=== PATIENT | female | born 1935 | race Caucasian/White ===

== ENCOUNTER 2017-08-01 08:08 | Inpatient (IN) | payer MEDICARE, OTHER ==
[2017-08-01] VITALS (20 sets, daily range): BP systolic 122–164; BP diastolic 48–97
[~2017-08-01] VITALS: Ht 160 cm; Wt 60.3 kg
[2017-08-01] MEDS ORDERED: ASPIRIN 325 MG TABLET PO ONE (08:15)
[2017-08-01] MEDS ORDERED: ASPIRIN 81 MG TAB.CHEW PO ONE (08:30)
[2017-08-01] MEDS ORDERED: AMLO10TA2 PO (08:31)
[2017-08-01] MEDS ORDERED: FENO145T20 PO (08:31)
[2017-08-01] MEDS ORDERED: POTA-10 PO (08:31)
[2017-08-01] MEDS ORDERED: ATOR40TA PO (08:31)
[2017-08-01] MEDS ORDERED: EZET10TA13 PO (08:31)
[2017-08-01] MEDS ORDERED: LOSA1TAB39 PO (08:31)
[2017-08-01] MEDS ORDERED: ASPI81TA31 PO (08:31)
--- NOTE | 2017-08-01 08:31 | NUR ---
BIPAP initiated by resp therapist, pt is tolerating the BIPAP well at this time.
[2017-08-01] MEDS ORDERED: ASPIRIN 325 MG TABLET ONE (08:36)
[2017-08-01] MEDS ORDERED: ASPIRIN 81 MG TAB.CHEW ONE (08:37)
[2017-08-01 08:52] LABS: BASOPHILS # (AUTO) 0.1 K/uL (0.0-8.0); BASOPHILS % (AUTO) 0.4 % (0.0-2.0); EOSINOPHILS # (AUTO) 0.1 K/uL (0.0-0.7); EOSINOPHILS % (AUTO) 0.7 % (0.0-7.0); HEMATOCRIT 34.3 % (31.2-41.9); HEMOGLOBIN 10.9 g/dL (10.9-14.3); LYMPHOCYTES # (AUTO) 1.6 K/uL (20.0-40.0); LYMPHOCYTES % (AUTO) 12.7 % (20.5-51.5); MEAN CORPUSCULAR HEMOGLOBIN 29.6 uug (24.7-32.8); MEAN CORPUSCULAR HGB CONC 32 g/dL (32.3-35.6); MONOCYTES # (AUTO) 0.4 K/uL (2.0-10.0); MONOCYTES % (AUTO) 3.4 % (0.0-11.0); NEUTROPHILS # (AUTO) 10.4 K/uL (1.8-8.9); NEUTROPHILS % (AUTO) 82.8 % (38.5-71.5); PLATELET COUNT (AUTO) 215 K/uL (179-408); RED BLOOD CELL COUNT(AUTO) 3.69 MIL/uL (3.63-4.92); WHITE BLOOD COUNT (AUTO) 12.6 K/uL (3.8-11.8)
[2017-08-01] MEDS ORDERED: FUROSEMIDE 20 MG/2 ML VIAL IV ONE ×2 (09:00→09:15)
[2017-08-01] MEDS ORDERED: LEVOFLOXACIN 750 MG/D5W 150 ML PIGGYBACK IV ONE (09:00)
--- NOTE | 2017-08-01 09:00 | NUR ---
CCU bed 5 will be available in approx 1100 per nursing supervisor [employer].
[2017-08-01 09:09] LABS: ALANINE AMINOTRANSFERASE 24 U/L (14-59); ALKALINE PHOSPHATASE 56 U/L (50-136); ASPARTATE AMINOTRANSFERASE 48 U/L (15-37); BILIRUBIN,DIRECT 0.3 mg/dL (0.0-0.2); BILIRUBIN,TOTAL 0.7 mg/dL (0.2-1.0); CARBON DIOXIDE 21 mmol/L (21-32); CHLORIDE 102 mmol/L (98-107); CREATININE 2.2 mg/dL (0.6-1.3); GLUCOSE 175 mg/dL (74-106); POTASSIUM 2.9 mmol/L (3.5-5.1); TOTAL PROTEIN, SERUM 7.6 g/dL (6.4-8.2); UREA NITROGEN, BLOOD 30 mg/dL (7-18)
[2017-08-01 09:12] LABS: ABG BASE EXCESS -6.7 mmol/L; ABG HCO3 18.5 mmol/L; ABG PCO2 35.4 mmHg (35.0-45.0); ABG PH 7.335 (7.350-7.450); ABG PO2 330.9 mmHg (75.0-100.0); ABG SITE LEFT RADIAL; COHb 1.2 % (0.5-1.5); MetHb 0.4 % (0.0-1.5); O2Hb 98.3 % (94.0-97.0); VENT MODE BIPAP- 14/5
[2017-08-01] MEDS ORDERED: ENOXAPARIN SODIUM 60 MG/0.6 ML DISP.SYRIN SQ ONE ×2 (09:15→09:37)
[2017-08-01] MEDS ORDERED: FUROSEMIDE 20 MG/2 ML VIAL ONE (09:19)
[2017-08-01] MEDS ORDERED: LEVOFLOXACIN 750MG/D5W 150 ML IV ONE (09:20)
--- NOTE | 2017-08-01 09:22 | NUR ---
Patient is resting comfortably on gurney with eyes closed, tolerating the BIPAP well. Spouse is at bedside. CCU bed and nurse will be available at around 1100am per nursing transmission maintenance supervisor.
--- NOTE | 2017-08-01 09:26 | NUR ---
Er doctor is aware of all lab tests results, no new orders given at this time
--- NOTE | 2017-08-01 09:53 | NUR ---
pt was given breathing tx in the field for SOB and SpO2 84% was on standby. pt received in the ER with NRB 100% O2. BiPAP 14/5, rate of 16, FiO2 100% per MD. alarms are on and audible. vent is plugged into red outlet. ambu bag at bedside. ABG done after 30min of being on BiPAP. lowered FiO2 per ABG results. will continue to monitor.
--- NOTE | 2017-08-01 10:47 | NUR ---
Oral care provided, still for CCU transfer as soon as the CCU nurse is ready
--- NOTE | 2017-08-01 11:30 | NUR ---
Admit pt.to CCU#5,Pt.A/A/O, on BIPAP denies any CP @ time,family members at bedside.
--- NOTE | 2017-08-01 11:35 | NUR ---
Pt.was seen by .
--- NOTE | 2017-08-01 12:15 | NUR ---
Pt.was seen by PARTS CLEANER:Adelaida Hill,was notified about pt.condition.
[2017-08-01] MEDS ORDERED: ONDANSETRON 4 MG/2 ML VIAL IV PRN (13:15)
[2017-08-01] MEDS ORDERED: POTASSIUM CHLORIDE 20 MEQ TAB.PRT.SR PO ONE (13:15)
[2017-08-01] MEDS ORDERED: Z GUARD REMEDY PASTE 57 GM TUBE TOP PRN (13:15)
[2017-08-01] MEDS ORDERED: ZOLPIDEM 5 MG TABLET PO PRN (13:15)
[2017-08-01] MEDS ORDERED: MAGNESIUM HYDROXIDE 30 ML LIQUID UDC PO PRN (13:15)
[2017-08-01] MEDS ORDERED: INSULIN REGULAR, HUMAN 300 UNIT/3 ML VIAL SQ PRN (13:15)
[2017-08-01] MEDS ORDERED: DEXTROSE 50% 50 ML DISP.SYRIN IV PRN (13:15)
[2017-08-01] MEDS ORDERED: ACETAMINOPHEN 325 MG TABLET PO PRN (13:15)
[2017-08-01] MEDS ORDERED: HYDROCODONE/APAP 5-325MG TABLET PO PRN (13:15)
[2017-08-01] MEDS ORDERED: HEPARIN SODIUM,PORCINE 5,000 UNITS/ML VIAL SQ SCH (13:15)
[2017-08-01] MEDS: POTASSIUM CHLORIDE 10 MEQ CAPSULE.SA PO SCH ×2 (13:46→16:43)
[2017-08-01 15:01] LABS: ABG BASE EXCESS -2.4 mmol/L; ABG PCO2 30.9 mmHg (35.0-45.0); ABG PO2 133.7 mmHg (75.0-100.0); ABG SITE LEFT BRACHIAL; ABG TOTAL HEMOGLOBIN 9.7 G/dL (12.0-16.0); COHb 0.6 % (0.5-1.5); MetHb 0.5 % (0.0-1.5); O2Hb 97.8 % (94.0-97.0); VENT MODE BIPAP
--- NOTE | 2017-08-01 15:11 | NUR ---
ABG DONE. RESULTS NON CRITICAL. BIPAP REMOVED AND PLACED ON 3LPM NC TO GIVE PATIENT A BREAK. PT STATES HER BREATHING IS FINE OFF OF BIPAP. PT SHOWS NO SIGNS OF SOB OR ANY RESPIRATORY DISTRESS.
--- NOTE | 2017-08-01 15:36 | NUR ---
EKG done,reported to AGRIBUSINESS PROFESSOR:Bipin
[2017-08-01] MEDS: HEPARIN/D5W DRIP 500 ML IV PRN (16:26)
--- NOTE | 2017-08-01 16:36 | NUR ---
Family members at bedside,updated with pt. plan of care and condition.
[2017-08-01] MEDS: BLOOD SUGAR DIAGNOSTIC 1 EACH STRIP VI SCH ×2 (16:42→21:17)
[2017-08-01] MEDS ORDERED: HEPARIN SODIUM,PORCINE 5,000 UNITS/ML VIAL IV PRN (16:45)
[2017-08-01] MEDS ORDERED: ATORVASTATIN 40 MG TABLET PO SCH (18:00)
--- NOTE | 2017-08-01 18:15 | NUR ---
Pt.eating dinner,poor appetite, watching TV denies any pain,no SOB noted.
--- NOTE | 2017-08-01 19:30 | NUR ---
Report received. Patient awake, alert but mildly restless, rubbing legs together but denies pain. "I can't stay still." patient states. Complaining about the Chaparro catheter and asking if it can be taken out. Advised appropriately. Denies SOB or chest pain. On O2 @ 3L NC; sat above 93%. Assessment completed. Tylenol given for generalized discomfort. On continuous Heparin drip per protocol. Addendum: 08/01/17 at 2341 by SILVIO CHRISTIANSON RN Amended: Links added.
--- NOTE | 2017-08-01 20:20 | NUR ---
Daughter visited; updated of patient's condition. Patient still restless. Spoke to Nisha Son NP. Order received. Addendum: 08/01/17 at 2345 by SILVIO CHRISTIANSON RN Amended: Links added.
[2017-08-01] MEDS ORDERED: LORAZEPAM 2 MG/1 ML VIAL IV ONE (20:30)
[2017-08-01] MEDS ORDERED: TEMAZEPAM 7.5 MG CAPSULE PO PRN (20:30)
--- NOTE | 2017-08-01 20:45 | NUR ---
PM care rendered. Patient made comfortable. Medicated with Ativan IV. Addendum: 08/01/17 at 2347 by SILVIO CHRISTIANSON RN Amended: Links added.
[2017-08-01] MEDS: FUROSEMIDE 40 MG/4 ML VIAL IV SCH (20:54)
[2017-08-01] MEDS ORDERED: METOPROLOL TARTRATE 50 MG TABLET PO SCH (21:00)
--- NOTE | 2017-08-01 21:13 | NUR ---
Troponin level called to Dr. Martin; order received to repeat Troponin level with am labs.
--- NOTE | 2017-08-01 21:45 | NUR ---
Remains restless,fidgety but continues to deny chest pain and SOB. Still can't get comfortable even after Ativan and PM care. No EKG changes. Spoke to Dr. Martin again. Orders received. Addendum: 08/01/17 at 2358 by SILVIO CHRISTIANSON RN Amended: Links added.
[2017-08-01] MEDS: NITROGLYCERIN IV 250 ML IV PRN (22:00)
--- NOTE | 2017-08-01 22:00 | NUR ---
Nitroglycerine drip started at 5 mcg/min. 2nd IV access inserted to RW area. Addendum: 08/02/17 at 0001 by SILVIO CHRISTIANSON RN Amended: Links added.
[2017-08-01] MEDS: MORPHINE SULFATE 2 MG/1 ML DISP.SYRIN IV PRN (22:04)
--- NOTE | 2017-08-01 22:30 | NUR ---
Morphine effective. Monitor: sinus arrhythmia to sinus bradycardia rate 50's. BPs monitored closely.
--- NOTE | 2017-08-01 23:25 | NUR ---
PTT dulxvlw=146.4 sec. Heparin drip off x 60 min and will resume at 775 units/H as per protocol.
[2017-08-02] VITALS (88 sets, daily range): BP systolic 107–189; BP diastolic 43–100
--- NOTE | 2017-08-02 | NUR ---
Sleeping. Sat above 94%.
--- NOTE | 2017-08-02 00:30 | NUR ---
Heparin drip resumed at 775 units/H as per protocol.
--- NOTE | 2017-08-02 02:30 | NUR ---
Patient awake, moving R leg actively where BPs are monitored. SBPs 170's. Nitroglycerine drip titrated. Both arms with multiple bruises. Addendum: 08/02/17 at 0527 by SILVIO CHRISTIANSON RN Amended: Links added.
[2017-08-02] MEDS: MORPHINE SULFATE 2 MG/1 ML DISP.SYRIN IV PRN (03:07)
--- NOTE | 2017-08-02 03:07 | NUR ---
Patient remains awake, with facial grimacing although still denying chest pain and discomfort. Medicated with Morphine IV.
[2017-08-02 05:31] LABS: CARBON DIOXIDE 21 mmol/L (21-32); CHLORIDE 108 mmol/L (98-107); CHOLESTEROL 107 mg/dL (<200); CREATININE 2.7 mg/dL (0.6-1.3); GLUCOSE 106 mg/dL (74-106); HDL CHOLESTEROL 68 mg/dL (40-60); MAGNESIUM 2.2 mg/dL (1.8-2.4); PHOSPHOROUS 4.7 mg/dL (2.5-4.9); POTASSIUM 4.3 mmol/L (3.5-5.1); TRIGLYCERIDES 44 MG/DL (30-150); UREA NITROGEN, BLOOD 38 mg/dL (7-18)
[2017-08-02 05:37] LABS: BASOPHILS % (AUTO) 0.3 % (0.0-2.0); EOSINOPHILS # (AUTO) 0.1 K/uL (0.0-0.7); EOSINOPHILS % (AUTO) 1.2 % (0.0-7.0); HEMATOCRIT 26.5 % (31.2-41.9); HEMOGLOBIN 8.7 g/dL (10.9-14.3); LYMPHOCYTES # (AUTO) 0.9 K/uL (20.0-40.0); LYMPHOCYTES % (AUTO) 16.5 % (20.5-51.5); MEAN CORPUSCULAR HEMOGLOBIN 30.1 uug (24.7-32.8); MEAN CORPUSCULAR HGB CONC 33 g/dL (32.3-35.6); MEAN CORPUSCULAR VOLUME 91.6 fL (75.5-95.3); MONOCYTES # (AUTO) 0.3 K/uL (2.0-10.0); MONOCYTES % (AUTO) 5.3 % (0.0-11.0); NEUTROPHILS # (AUTO) 4.2 K/uL (1.8-8.9); NEUTROPHILS % (AUTO) 76.7 % (38.5-71.5); PLATELET COUNT (AUTO) 147 K/uL (179-408); RED BLOOD CELL COUNT(AUTO) 2.89 MIL/uL (3.63-4.92); WHITE BLOOD COUNT (AUTO) 5.4 K/uL (3.8-11.8)
--- NOTE | 2017-08-02 06:03 | NUR ---
PTT=98.6 sec. On Heparin protocol. Patient continues to sleep but easily arouses to name.
--- NOTE | 2017-08-02 07:00 | NUR ---
Heparin drip resumed at 575 units/H. Nitroglycerine drip at 40 mcg/min. Remains in SA and Sinus bradycardia rate in the 40's. Report given to Marilin MEDRANO.
--- NOTE | 2017-08-02 07:30 | NUR ---
RECIEVED PT LYING IN BED, VERY SOUND ASLEEP BUT EASILY AROUSABLE. APPEARS VERY TIRED. NO C/O CHEST PAINS. HR- SB IN THE LOW 50'S. ON HEPARIN DRIP AT 575UNITS/HR=11.5ML/HR VIA RT WRIST. NITROGLYCERIN DRIP AT 40MCG/MIN RUNNING AT 12ML/HR. O2 ON 3LNC, O2SAT OF 92-95%. LUNGS ARE CLEAR AND DIMINISHED AT THE BASES. AFEBRILE.
[2017-08-02] MEDS: BLOOD SUGAR DIAGNOSTIC 1 EACH STRIP VI SCH ×4 (07:32→21:08)
[2017-08-02] MEDS: FUROSEMIDE 40 MG/4 ML VIAL IV SCH ×2 (08:55→21:09)
[2017-08-02] MEDS: AMLODIPINE 10 MG TABLET PO SCH (08:56)
[2017-08-02] MEDS ORDERED: EZETIMIBE 10 MG TABLET PO SCH (09:00)
[2017-08-02] MEDS ORDERED: LEVOFLOXACIN 750MG/D5W 750 MG in PREMIXED 1 EACH IV SCH (09:00)
[2017-08-02] MEDS ORDERED: ASPIRIN 81 MG TAB.CHEW PO SCH ×2 (09:00)
[2017-08-02] MEDS ORDERED: FENOFIBRATE NANOCRYSTALLIZED 145 MG TABLET PO SCH (09:00)
[2017-08-02 09:11] LABS: ABG BASE EXCESS -1.9 mmol/L; ABG HCO3 22.2 mmol/L; ABG PCO2 34.8 mmHg (35.0-45.0); ABG PH 7.422 (7.350-7.450); ABG PO2 74.1 mmHg (75.0-100.0); ABG SITE RIGHT RADIAL; ABG TOTAL HEMOGLOBIN 9.4 G/dL (12.0-16.0); COHb 1.1 % (0.5-1.5); MetHb 0.3 % (0.0-1.5); O2Hb 93.7 % (94.0-97.0); VENT MODE Nasal Cannula
--- NOTE | 2017-08-02 09:15 | NUR ---
PT REFUSED TO EAT AND C/O BEING NAUSEATED. MEDICATED WITH ZOFRAN 4MG SLOW IVP ORDERED. AND PT ABLE TO SLEEP.
--- NOTE | 2017-08-02 10:18 | NUR ---
SEEN AND EXAMINED BY DR MCKINNON WITH NEW ORDER. DISCUSSED ABOUT PT CONDITION WITH THE REGARDING POSSIBLE HEART CATH AND TRANSFERRING TO ANOTHER ACUTE HOSPITAL.
--- NOTE | 2017-08-02 11:30 | NUR ---
SEEN AND EXAMINED BY DR TEJADA WITH NEW ORDER. APPLICATION ENGINEER IS WORKING ON POSSIBLE TRANSFER TO [facility]. FAMILY IS AMENABLE.
[2017-08-02] MEDS ORDERED: MORPHINE SULFATE 4 MG/1 ML DISP.SYRIN IV PRN (12:15)
--- NOTE | 2017-08-02 12:39 | NUR ---
SEEN AND EXAMINED BY NANCY RODGERS WITH NEW ORDER. FAMILY AT THE BEDSIDE AND VERY PLEASANT.
[2017-08-02] MEDS: ATORVASTATIN 40 MG TABLET PO SCH (17:43)
--- NOTE | 2017-08-02 19:00 | NUR ---
Held dose of hydralazine due 1744. Will give on next dose at 2200
[2017-08-02] MEDS: hydrALAZINE HCL 25 MG TABLET PO SCH ×2 (19:30→21:11)
--- NOTE | 2017-08-02 19:30 | NUR ---
Patient is resting in bed. A/O x 4 with no complains of discomfort or pain. Nitro drip and Heparin drip running as ordered via peripheral IV. See eMAR. Sinus bradycardia on monitor with HR in 50s. BP WNL. Nasal cannula 4L O2. Chaparro intact, patent. SBAR report received from Tona Chacon RN. Will continue plan of care.
--- NOTE | 2017-08-02 20:42 | NUR ---
Call from [facility] transfer [facility] regarding transfer. No bed available at this time. Face sheet faxed,
[2017-08-02] MEDS ORDERED: METOPROLOL TARTRATE 50 MG TABLET PO SCH (21:00)
[2017-08-02] MEDS: METOPROLOL TARTRATE 25 MG TABLET PO SCH (21:00)
--- NOTE | 2017-08-02 22:01 | NUR ---
Held Metoprolol 2100 for bradycardia
[2017-08-03] VITALS (62 sets, daily range): BP systolic 113–160; BP diastolic 42–99
[2017-08-03] MEDS: NITROGLYCERIN IV 250 ML IV PRN (01:33)
[2017-08-03 05:16] LABS: BASOPHILS % (AUTO) 0.4 % (0.0-2.0); EOSINOPHILS # (AUTO) 0.2 K/uL (0.0-0.7); EOSINOPHILS % (AUTO) 3.1 % (0.0-7.0); HEMATOCRIT 26.9 % (31.2-41.9); HEMOGLOBIN 8.9 g/dL (10.9-14.3); LYMPHOCYTES # (AUTO) 0.8 K/uL (20.0-40.0); LYMPHOCYTES % (AUTO) 15.7 % (20.5-51.5); MEAN CORPUSCULAR HEMOGLOBIN 30.3 uug (24.7-32.8); MEAN CORPUSCULAR HGB CONC 33 g/dL (32.3-35.6); MEAN CORPUSCULAR VOLUME 92.1 fL (75.5-95.3); MONOCYTES # (AUTO) 0.3 K/uL (2.0-10.0); MONOCYTES % (AUTO) 6.2 % (0.0-11.0); NEUTROPHILS # (AUTO) 3.7 K/uL (1.8-8.9); NEUTROPHILS % (AUTO) 74.6 % (38.5-71.5); PLATELET COUNT (AUTO) 153 K/uL (179-408); RED BLOOD CELL COUNT(AUTO) 2.92 MIL/uL (3.63-4.92)
[2017-08-03 05:40] LABS: CARBON DIOXIDE 23 mmol/L (21-32); CHLORIDE 106 mmol/L (98-107); CREATININE 3.1 mg/dL (0.6-1.3); FERRITIN 155 ng/mL (8-252); GLUCOSE 93 mg/dL (74-106); PHOSPHOROUS 4.8 mg/dL (2.5-4.9); POTASSIUM 3.5 mmol/L (3.5-5.1); UREA NITROGEN, BLOOD 44 mg/dL (7-18)
[2017-08-03 05:49] LABS: IRON, SERUM 22 ug/dL (50-175)
[2017-08-03] MEDS: hydrALAZINE HCL 25 MG TABLET PO SCH ×3 (06:01→22:31)
[2017-08-03] MEDS: HEPARIN/D5W DRIP 500 ML IV PRN (06:13)
[2017-08-03] MEDS: BLOOD SUGAR DIAGNOSTIC 1 EACH STRIP VI SCH ×4 (06:31→21:21)
--- NOTE | 2017-08-03 07:30 | NUR ---
RECIEVED PT VERY SOUND ASLEEP. HOB 30DEGREES UP. AROUSABLE TO CALL. COLOR IS SLIGHTLY PALE. DENIES MUNOZ OR DIZZINESS. HR-SB IN THE LOW 50'S WITH OCCASSIONAL PAC'S. NO C/O CP. HEPARIN DRIP IN PROGRESS AT 675UNITS/HR. SITE IS GOOD... NITROGLYCERINE DRIP INFUSING AT 12 MCG/MIN FOR BP CONTROL. SBP RUNNING BETWEEN 125 TO 160. NO C/O HEADACHES.
[2017-08-03] MEDS: ASPIRIN 81 MG TAB.CHEW PO SCH (08:34)
[2017-08-03] MEDS: AMLODIPINE 10 MG TABLET PO SCH (08:34)
[2017-08-03] MEDS: FUROSEMIDE 40 MG/4 ML VIAL IV SCH (08:35)
[2017-08-03] MEDS: LEVOFLOXACIN 500 MG/D5W 500 MG in PREMIXED 1 EACH IV SCH (08:48)
[2017-08-03] MEDS ORDERED: LEVOFLOXACIN 500 MG/D5W 0 ML ONE (08:49)
[2017-08-03] MEDS: METOPROLOL TARTRATE 25 MG TABLET PO SCH ×2 (08:49→21:18)
--- NOTE | 2017-08-03 09:00 | NUR ---
SEEN AND EVALUATED BY PT. ABLE TO DANGLE IN BED WITHOUT ANY PROBLEM.
--- NOTE | 2017-08-03 09:30 | NUR ---
PT ATE GOOD FOR BREAKFAST.
--- NOTE | 2017-08-03 11:30 | NUR ---
SEEN AND EXAMINED BY DR TEJADA WITH NEW ORDER
--- NOTE | 2017-08-03 12:00 | NUR ---
SEEN AND EXAMINED BY DR CURTIS AND SPOKE WITH PT AND FAMILY AT THE BEDSIDE.
--- NOTE | 2017-08-03 13:00 | NUR ---
PTT-34.6. HEPARIN 3,600UNITS BOLUS GIVEN PER PROTOCOL AND INCREASE THE RATE BY 200, RUNNING AT 875 UNITS/HR. NEXT PTT WILL BE AT 1900.
--- NOTE | 2017-08-03 15:30 | NUR ---
SEEN AND EXAMINED BY DR PRATIBHA HOOD NEW ORDERS. HEPAARIN DRIP AND NITROGLYCERINE DRIP ARE DISCONTINUED ORDERED. PT ALSO GOT DOWN GRADED TO TELEMETRY.
[2017-08-03] MEDS: ATORVASTATIN 40 MG TABLET PO SCH (18:32)
--- NOTE | 2017-08-03 19:00 | NUR ---
PT TRANSFERRED TO TELEMETRY UNIT RM 211 VIA BED. CONDITION IS STABLE.
--- NOTE | 2017-08-03 19:30 | NUR ---
PT IN ROOM ALERT AWAKE IN NO ACUTE DISTRESS. SINUS RHYTHM NOTED WITH 78 BPM. ABLE TO FOLLOW SIMPLE COMMANDS WITHOUT DIFFICULTY. NO ACTIVE BLEEDING AT THIS TIME BUT BRUISES TO BILATERAL UPPER EXTREMITIES STILL PRESENT. 02 SAT NOTED 96% VIA OXYGEN 3L/MIN. REMINDED PT TO ASK FOR ASSISTANCE IF NEEDED. CALL LIGHT PLACED WITHIN REACH. DENIES ANY PAIN, HEADACHES, OR SOB AT THIS TIME. CONTINUE TO MONITOR.
--- NOTE | 2017-08-03 20:00 | NUR ---
PT REFUSES TO WEAR SCDS AT THIS TIME.
[2017-08-04] VITALS: BP 140/50
[2017-08-04 04:36] VITALS: BP 149/45
--- NOTE | 2017-08-04 06:00 | NUR ---
PT IN ROOM ALERT AWAKE IN NO ACUTE DISTRESS OVERNIGHT. ABLE TO SLEEP WITHOUT DIFFICULTY SINCE RECIEVING RESTORIL REQUESTED. SINUS RYTHYM NOTED ON TRANSCRIBING MACHINE MECHANIC. NO S/S OF RESP DISTRESS. DENIES ANY HEADACHES, SOB, OR PAIN AT THIS TIME. NO S/S OF HYPER/HYPOGLYCEMIA. CONTINUE TO MONITOR. PT ENCOURAGED DEEP BREATHING EXERCISES AND REPOSITIONED. BP MEDICATION ROUTINELY GIVEN.
[2017-08-04 06:37] LABS: BASOPHILS % (AUTO) 0.4 % (0.0-2.0); EOSINOPHILS % (AUTO) 0.6 % (0.0-7.0); HEMATOCRIT 27.1 % (31.2-41.9); HEMOGLOBIN 9.1 g/dL (10.9-14.3); LYMPHOCYTES # (AUTO) 0.8 K/uL (20.0-40.0); LYMPHOCYTES % (AUTO) 16.1 % (20.5-51.5); MEAN CORPUSCULAR HEMOGLOBIN 30.3 uug (24.7-32.8); MEAN CORPUSCULAR HGB CONC 34 g/dL (32.3-35.6); MEAN CORPUSCULAR VOLUME 90.4 fL (75.5-95.3); MONOCYTES # (AUTO) 0.4 K/uL (2.0-10.0); MONOCYTES % (AUTO) 8.7 % (0.0-11.0); NEUTROPHILS # (AUTO) 3.6 K/uL (1.8-8.9); NEUTROPHILS % (AUTO) 74.2 % (38.5-71.5); PLATELET COUNT (AUTO) 162 K/uL (179-408); WHITE BLOOD COUNT (AUTO) 4.9 K/uL (3.8-11.8)
[2017-08-04 06:44] LABS: CARBON DIOXIDE 22 mmol/L (21-32); CHLORIDE 104 mmol/L (98-107); CREATININE 3.1 mg/dL (0.6-1.3); GLUCOSE 88 mg/dL (74-106); POTASSIUM 3.2 mmol/L (3.5-5.1); UREA NITROGEN, BLOOD 44 mg/dL (7-18)
[2017-08-04] MEDS: hydrALAZINE HCL 25 MG TABLET PO SCH ×3 (06:54→22:58)
[2017-08-04] MEDS: BLOOD SUGAR DIAGNOSTIC 1 EACH STRIP VI SCH ×4 (06:56→20:43)
--- NOTE | 2017-08-04 07:40 | NUR ---
Patient is resting in bed. A/O x 4 with no complains of discomfort or pain Sinus on monitor with HR in 67. BP WNL. Nasal cannula 3L O2. Chaparro intact, patent. . Will continue plan of care.
[2017-08-04] MEDS: ASPIRIN 81 MG TAB.CHEW PO SCH (08:16)
[2017-08-04] MEDS: AMLODIPINE 10 MG TABLET PO SCH (08:16)
[2017-08-04] MEDS: METOPROLOL TARTRATE 25 MG TABLET PO SCH ×2 (08:16→20:25)
[2017-08-04] MEDS: CLOPIDOGREL 75 MG TABLET PO SCH (09:48)
[2017-08-04] MEDS ORDERED: POTASSIUM CHLORIDE 20 MEQ POWDER PACKET PO ONE (11:30)
[2017-08-04 11:36] VITALS: BP 116/43
--- NOTE | 2017-08-04 12:00 | NUR ---
d/c folly catheter per md orders.
[2017-08-04 15:54] VITALS: BP 130/46
[2017-08-04] MEDS: ATORVASTATIN 40 MG TABLET PO SCH (18:11)
--- NOTE | 2017-08-04 19:20 | NUR ---
PT IN ROOM ALERT AWAKE IN NO RESP DISTRESS. ABLE TO FOLLOW SIMPLE COMMANDS WITHOUT DIFFICULTY. REMINDED PT TO USE OXYGEN N/C AND TO REQUEST FOR ASSISTANCE WHEN NEEDED. IV SITE IN TACT AND DENIES ANY PAIN OR ABDOMINAL DISCOMFORT. CONTINUE TO MONITOR. PT MADE AWARE OF PLAN FOR TRANSFER TOMORROW AM FOR STRESS TEST. VERBALIZED UNDERSTANDING. CALL LIGHT PLACED WITHIN REACH.
[2017-08-04 20:09] VITALS: BP 140/53
[2017-08-05 00:12] VITALS: BP 141/52
--- NOTE | 2017-08-05 01:00 | NUR ---
PT IN ROOM ASLEEP IN NO ACUTE DISTRESS. SINUS RHYTHM NOTED WITH 57 BPM. MAINTAINING NPO AT THIS TIME. CONTINUE TO MONITOR.
[2017-08-05 04:00] VITALS: BP 151/43
--- NOTE | 2017-08-05 05:00 | NUR ---
PT IN ROOM ALERT AWAKE IN NO ACUTE DISTRESS. DENIES ANY PAIN OR DISCOMFORT AT THIS TIME. SINUS RHYTHM NOTED. MAINTAINING NPO STATUS AND AWARE OF UPCOMING TRANSFER TO [place] FOR PROCEDURE. NO NEW ORDERS AT THIS TIME. CONTINUE TO MONITOR. PT REMINDED TO USE CALL LIGHT FOR ASSISTANCE WHEN NEEDED. REMINDED PT TO WEAR N/C AT ALL TIMES. VERBALIZED UNDERSTANDING.
[2017-08-05] MEDS: hydrALAZINE HCL 25 MG TABLET PO SCH ×4 (05:57→21:10)
[2017-08-05 06:25] LABS: BASOPHILS % (AUTO) 0.4 % (0.0-2.0); EOSINOPHILS # (AUTO) 0.1 K/uL (0.0-0.7); EOSINOPHILS % (AUTO) 1.7 % (0.0-7.0); HEMATOCRIT 29.4 % (31.2-41.9); HEMOGLOBIN 9.8 g/dL (10.9-14.3); LYMPHOCYTES # (AUTO) 0.7 K/uL (20.0-40.0); LYMPHOCYTES % (AUTO) 11.6 % (20.5-51.5); MEAN CORPUSCULAR HEMOGLOBIN 30.2 uug (24.7-32.8); MEAN CORPUSCULAR HGB CONC 33 g/dL (32.3-35.6); MEAN CORPUSCULAR VOLUME 90.8 fL (75.5-95.3); MONOCYTES # (AUTO) 0.4 K/uL (2.0-10.0); MONOCYTES % (AUTO) 7.9 % (0.0-11.0); NEUTROPHILS # (AUTO) 4.5 K/uL (1.8-8.9); NEUTROPHILS % (AUTO) 78.4 % (38.5-71.5); PLATELET COUNT (AUTO) 189 K/uL (179-408); RED BLOOD CELL COUNT(AUTO) 3.23 MIL/uL (3.63-4.92); WHITE BLOOD COUNT (AUTO) 5.7 K/uL (3.8-11.8)
[2017-08-05] MEDS: BLOOD SUGAR DIAGNOSTIC 1 EACH STRIP VI SCH ×4 (06:32→21:15)
[2017-08-05 06:39] LABS: ALANINE AMINOTRANSFERASE 26 U/L (14-59); ALKALINE PHOSPHATASE 42 U/L (50-136); ASPARTATE AMINOTRANSFERASE 48 U/L (15-37); BILIRUBIN,TOTAL 0.7 mg/dL (0.2-1.0); CARBON DIOXIDE 22 mmol/L (21-32); CHLORIDE 104 mmol/L (98-107); CREATININE 2.9 mg/dL (0.6-1.3); GLUCOSE 113 mg/dL (74-106); MAGNESIUM 2.1 mg/dL (1.8-2.4); PHOSPHOROUS 3.8 mg/dL (2.5-4.9); POTASSIUM 3.7 mmol/L (3.5-5.1); TOTAL PROTEIN, SERUM 6.9 g/dL (6.4-8.2); UREA NITROGEN, BLOOD 44 mg/dL (7-18)
[2017-08-05] MEDS: AMLODIPINE 10 MG TABLET PO SCH (08:15)
[2017-08-05] MEDS: METOPROLOL TARTRATE 25 MG TABLET PO SCH ×2 (08:16→21:09)
[2017-08-05] MEDS: ASPIRIN 81 MG TAB.CHEW PO SCH (08:17)
[2017-08-05] MEDS: CLOPIDOGREL 75 MG TABLET PO SCH (08:17)
[2017-08-05] MEDS: LEVOFLOXACIN 500 MG/D5W 500 MG in PREMIXED 1 EACH IV SCH (08:19)
[2017-08-05] MEDS ORDERED: REGADENOSON 0.4 MG/5 ML PREFILLED SYR IV ONE (09:00)
--- NOTE | 2017-08-05 10:30 | NUR ---
pt went to [facility] for stress test via ambulances in stable condition.
[2017-08-05 11:07] VITALS: BP 133/49
[2017-08-05 15:36] VITALS: BP 150/54
--- NOTE | 2017-08-05 15:40 | NUR ---
pt received back from [facility] via ambulances in stable condition.
[2017-08-05] MEDS: ATORVASTATIN 40 MG TABLET PO SCH (17:41)
--- NOTE | 2017-08-05 19:30 | NUR ---
RECEIVED PT AWAKE, ALERT AND ORIENTED X4. FAMILY AT BEDSIDE. PT SHOWS NO SIGNS OF DISTRESS. PT IV INTACT AND ON HEPLOCK. CALL LIGHT WITHIN REACH. SAFETY AND COMFORT PROVIDED . WILL CONTINUE TO MONITOR.
[2017-08-06] VITALS: BP 141/54
[2017-08-06 03:07] LABS: *BILIRUBIN,URIN NEGATIVE (NEGATIVE); *BLOOD, URINE NEGATIVE (NEGATIVE); *CLARITY,URINE SLIGHTLY CLOUDY (CLEAR); *COLOR,URINE YELLOW (YELLOW); *KETONES,URINE NEGATIVE (NEGATIVE); *UROBILINOGEN,URINE 0.2 E.U./dl (NORMAL); LEUKOCYTE ESTERASE ,URINE NEGATIVE (NEGATIVE); NITRITE, URINE NEGATIVE (NEGATIVE); PH,URINE 5.5 (5.0-8.0); UGLUCOSE NEGATIVE (NEGATIVE)
[2017-08-06 03:12] LABS: *PROTEIN,URINE 3+ (NEGATIVE)
[2017-08-06 03:17] LABS: BACTERIA,URINE NONE SEEN /HPF (NONE SEEN); RBC,URINE 0-3 /HPF (0-3); SQUAMOUS EPITHELIAL CELL,UR FEW /HPF (NONE SEEN); WBC,URINE 0-3 /HPF (0-3)
[2017-08-06 03:19] LABS: *CREATININE,URINE 135.6 mg/dL (30-125); *URINE TOTAL PROTEIN RANDOM 134.6 mg/dL (<150/24HR)
[2017-08-06 04:00] VITALS: BP 137/51
[2017-08-06] MEDS: hydrALAZINE HCL 25 MG TABLET PO SCH (05:39)
[2017-08-06 06:00] LABS: BASOPHILS % (AUTO) 0.3 % (0.0-2.0); EOSINOPHILS # (AUTO) 0.1 K/uL (0.0-0.7); EOSINOPHILS % (AUTO) 2.4 % (0.0-7.0); HEMATOCRIT 28.5 % (31.2-41.9); HEMOGLOBIN 9.5 g/dL (10.9-14.3); LYMPHOCYTES # (AUTO) 0.7 K/uL (20.0-40.0); LYMPHOCYTES % (AUTO) 13.1 % (20.5-51.5); MEAN CORPUSCULAR HEMOGLOBIN 30.1 uug (24.7-32.8); MEAN CORPUSCULAR HGB CONC 33 g/dL (32.3-35.6); MONOCYTES # (AUTO) 0.5 K/uL (2.0-10.0); MONOCYTES % (AUTO) 9.2 % (0.0-11.0); NEUTROPHILS # (AUTO) 4.2 K/uL (1.8-8.9); PLATELET COUNT (AUTO) 197 K/uL (179-408); RED BLOOD CELL COUNT(AUTO) 3.14 MIL/uL (3.63-4.92); WHITE BLOOD COUNT (AUTO) 5.6 K/uL (3.8-11.8)
[2017-08-06] MEDS: BLOOD SUGAR DIAGNOSTIC 1 EACH STRIP VI SCH ×2 (06:30→11:30)
--- NOTE | 2017-08-06 06:34 | NUR ---
PT SLEPT THROUGHOUT THE SHIFT. PT SHOWS NO SIGNS OF ACUTE DISTRESS. ALL PRESCRIBED MEDICATION GIVEN.PT TOLERATED IT WELL. PT BLOOD SUGAR LEVEL WERE 100 AND 91. CALL LIGHT WITHIN REACH AND BED ALARM ON AND IN LOW POSITION. IV INTACT AND PATENT.
[2017-08-06 06:35] LABS: ALANINE AMINOTRANSFERASE 26 U/L (14-59); ALKALINE PHOSPHATASE 37 U/L (50-136); ASPARTATE AMINOTRANSFERASE 49 U/L (15-37); BILIRUBIN,TOTAL 0.6 mg/dL (0.2-1.0); CARBON DIOXIDE 21 mmol/L (21-32); CHLORIDE 107 mmol/L (98-107); CREATININE 2.9 mg/dL (0.6-1.3); GLUCOSE 98 mg/dL (74-106); MAGNESIUM 2.1 mg/dL (1.8-2.4); PHOSPHOROUS 4.7 mg/dL (2.5-4.9); POTASSIUM 3.7 mmol/L (3.5-5.1); TOTAL PROTEIN, SERUM 6.4 g/dL (6.4-8.2); UREA NITROGEN, BLOOD 48 mg/dL (7-18)
--- NOTE | 2017-08-06 07:25 | NUR ---
PT IN ROOM ALERT AWAKE IN NO ACUTE DISTRESS NOTED. SINUS RHYTHM NOTED ON SINKER WINDER. DENIES ANY HEADACHES, SOB, OR PAIN AT THIS TIME. NO S/S OF HYPER/HYPOGLYCEMIA. CONTINUE TO MONITOR. CALL LIGHT WITH IN REACH.
[2017-08-06] MEDS: CLOPIDOGREL 75 MG TABLET PO SCH (08:03)
[2017-08-06] MEDS: METOPROLOL TARTRATE 25 MG TABLET PO SCH (08:04)
[2017-08-06] MEDS: ASPIRIN 81 MG TAB.CHEW PO SCH (08:04)
[2017-08-06] MEDS: AMLODIPINE 10 MG TABLET PO SCH (08:04)
[2017-08-06] MEDS ORDERED: APIX2.5T PO (10:34)
[2017-08-06] MEDS ORDERED: LEVO500T2 PO (10:34)
[2017-08-06] MEDS ORDERED: ATOR40TA PO (10:34)
[2017-08-06] MEDS ORDERED: HYDR25TA86 PO (10:34)
[2017-08-06] MEDS ORDERED: METO25TA6 PO (10:34)
[2017-08-06 11:13] VITALS: BP 112/47
--- NOTE | 2017-08-06 12:07 | NUR ---
D/C ORDERS RECEIVED NOTED AND CARRIED OUT.D/C HEPLOCK PER MD ORDERS,PT VERBALIZED UNDERSTANDING ALL THE INSTRUCTIONS PT LEFT THE FACILITY VIA PRIVATE CAR IN STABLE CONDITION.
[2017-08-07] MEDS ORDERED: LEVOFLOXACIN 750 MG TABLET PO SCH (09:00)
[2017-08-07] MEDS ORDERED: LEVOFLOXACIN 500 MG TABLET PO SCH (09:00)
== END 2017-08-06 12:00 | disposition home or self-care (01) | DRG 280 ==
LOC: ER 08:08 → CCU 11:11 → TELE 08-03 19:07
PROVIDERS: ADMIT Internal Medicine; ATTEND Nurse Practitioner Acute Care
PROC: 5A09357 Assistance with Respiratory Ventilation, Less than 24 Consecutive Hours, Continuous Positive Airway Pressure (ICD-10-PCS; principal; 2017-08-01)
DX: I11.0 Hypertensive heart disease with heart failure (principal); N17.0 Acute kidney failure with tubular necrosis; I21.4 Non-ST elevation (NSTEMI) myocardial infarction; J96.01 Acute respiratory failure with hypoxia; J15.9 Unspecified bacterial pneumonia; I48.0 Paroxysmal atrial fibrillation; E44.0 Moderate protein-calorie malnutrition; D64.9 Anemia, unspecified; I50.43 Acute on chronic combined systolic (congestive) and diastolic (congestive) heart failure; E87.6 Hypokalemia; I25.10 Atherosclerotic heart disease of native coronary artery without angina pectoris; Z98.61 Coronary angioplasty status; Z87.891 Personal history of nicotine dependence; Z88.0 Allergy status to penicillin; Z68.23 Body mass index [BMI] 23.0-23.9, adult; E78.5 Hyperlipidemia, unspecified; I70.0 Atherosclerosis of aorta; Y95 Nosocomial condition; Z88.5 Allergy status to narcotic agent; Z79.82 Long term (current) use of aspirin; R73.9 Hyperglycemia, unspecified; M21.371 Foot drop, right foot; Z86.73 Personal history of transient ischemic attack (TIA), and cerebral infarction without residual deficits
CPT/HCPCS: 36415; 36600; 70030-TC; 71045; 78452; 83550; 83735; 84100; 84156; 84300; 84443; 85025; 85730; 87040; 87400; 93005; 93307; 93880; 97116; 97530; A4663; A9502; J1644; J1650; J1815; J1940; J1956; J2060; J2270; J2785; J3490

== ENCOUNTER 2018-02-18 13:52 | Inpatient (IN) | payer BC, MEDICARE ==
[~2018-02-18] VITALS: Ht 157.5 cm; Wt 49.9 kg
[~2018-02-18 13:52] MED LIST: AMLO10TA2 PO; APIX2.5T PO; ATOR40TA PO; EZET10TA13 PO; FENO145T37 PO; HYDR25TA86 PO; LEVO500T2 PO; METO25TA6 PO
--- NOTE | 2018-02-18 14:15 | NUR ---
Pt and her are unable to provide information about current medications at this time.
[2018-02-18] MEDS ORDERED: LIDOCAINE 1%-EPI 1:100,000 20 ML VIAL TP ONE (14:30)
[2018-02-18] MEDS ORDERED: TDAP DIPH,PERTUSS,TET VAC/PF 0.5 ML DISP.SYRIN IM ONE ×2 (14:30→14:33)
--- NOTE | 2018-02-18 15:45 | NUR ---
Pt and her are still unable to recall information about home medications, pt stated her daughter is on her way to the hospital and will be able to provide the information.
[2018-02-18 16:22] LABS: BASOPHILS % (AUTO) 0.5 % (0.0-2.0); EOSINOPHILS % (AUTO) 0.9 % (0.0-7.0); HEMATOCRIT 28.3 % (31.2-41.9); HEMOGLOBIN 9.5 g/dL (10.9-14.3); LYMPHOCYTES # (AUTO) 0.4 K/uL (20.0-40.0); LYMPHOCYTES % (AUTO) 9.6 % (20.5-51.5); MEAN CORPUSCULAR HGB CONC 33 g/dL (32.3-35.6); MEAN CORPUSCULAR VOLUME 95.7 fL (75.5-95.3); MONOCYTES # (AUTO) 0.4 K/uL (2.0-10.0); MONOCYTES % (AUTO) 8.7 % (0.0-11.0); NEUTROPHILS # (AUTO) 3.7 K/uL (1.8-8.9); NEUTROPHILS % (AUTO) 80.3 % (38.5-71.5); PLATELET COUNT (AUTO) 159 K/uL (179-408); RED BLOOD CELL COUNT(AUTO) 2.96 MIL/uL (3.63-4.92); WHITE BLOOD COUNT (AUTO) 4.6 K/uL (3.8-11.8)
[2018-02-18 16:27] LABS: CARBON DIOXIDE 28 mmol/L (21-32); CHLORIDE 103 mmol/L (98-107); CREATININE 3.1 mg/dL (0.6-1.3); GLUCOSE 124 mg/dL (74-106); POTASSIUM 3.6 mmol/L (3.5-5.1); UREA NITROGEN, BLOOD 63 mg/dL (7-18)
[2018-02-18] MEDS ORDERED: FERR325T24 PO (16:28)
[2018-02-18] MEDS ORDERED: ASPI81TA31 PO (16:28)
[2018-02-18] MEDS ORDERED: FURO-152 PO (16:28)
[2018-02-18] MEDS ORDERED: LEVO50TA8 PO (16:28)
[2018-02-18] MEDS ORDERED: SODI650T PO (16:28)
[2018-02-18] MEDS ORDERED: POTA10CA43 PO (16:28)
[2018-02-18 16:33] LABS: ALANINE AMINOTRANSFERASE 30 U/L (14-59); ALKALINE PHOSPHATASE 55 U/L (50-136); ASPARTATE AMINOTRANSFERASE 44 U/L (15-37); BILIRUBIN,DIRECT 0.1 mg/dL (0.0-0.2); BILIRUBIN,TOTAL 0.4 mg/dL (0.2-1.0); TOTAL PROTEIN, SERUM 7.4 g/dL (6.4-8.2)
[2018-02-18 16:46] VITALS: BP 156/51
[2018-02-18] MEDS ORDERED: ONDANSETRON 4 MG/2 ML VIAL IV PRN (18:45)
[2018-02-18] MEDS ORDERED: ACETAMINOPHEN 325 MG TABLET PO PRN (18:45)
[2018-02-18] MEDS ORDERED: HYDROCODONE/APAP 5-325MG TABLET PO PRN (18:45)
[2018-02-18] MEDS ORDERED: Z GUARD REMEDY PASTE 57 GM TUBE TOP PRN (18:45)
[2018-02-18] MEDS ORDERED: MAGNESIUM HYDROXIDE 30 ML LIQUID UDC PO PRN (18:45)
[2018-02-18] MEDS ORDERED: ZOLPIDEM 5 MG TABLET PO PRN (18:45)
[2018-02-18] MEDS ORDERED: FURO40TA5 PO (18:56)
[2018-02-18] MEDS ORDERED: HYDR100T27 PO (18:57)
[2018-02-18] MEDS ORDERED: ROSU5TAB PO (18:58)
[2018-02-18 20:14] VITALS: BP 168/56
[2018-02-18] MEDS: METOPROLOL TARTRATE 25 MG TABLET PO SCH (20:26)
--- NOTE | 2018-02-18 20:26 | NUR ---
nsg: lopressor on hold, HR sustaining in 50's, HR is 51.
[2018-02-18] MEDS: IV NS 1000 ML 1,000 ML IV PRN (20:48)
[2018-02-18] MEDS: ATORVASTATIN 10 MG TABLET PO SCH (20:49)
[2018-02-18] MEDS: hydrALAZINE HCL 50 MG TABLET PO SCH (20:49)
[2018-02-19 00:03] VITALS: BP 144/42
[2018-02-19 04:28] LABS: BASOPHILS % (AUTO) 0.7 % (0.0-2.0); EOSINOPHILS % (AUTO) 0.9 % (0.0-7.0); HEMATOCRIT 24.1 % (31.2-41.9); LYMPHOCYTES # (AUTO) 0.6 K/uL (20.0-40.0); LYMPHOCYTES % (AUTO) 12.3 % (20.5-51.5); MEAN CORPUSCULAR HEMOGLOBIN 31.3 uug (24.7-32.8); MEAN CORPUSCULAR HGB CONC 33 g/dL (32.3-35.6); MEAN CORPUSCULAR VOLUME 94.5 fL (75.5-95.3); MONOCYTES # (AUTO) 0.4 K/uL (2.0-10.0); NEUTROPHILS # (AUTO) 3.5 K/uL (1.8-8.9); NEUTROPHILS % (AUTO) 77.1 % (38.5-71.5); PLATELET COUNT (AUTO) 136 K/uL (179-408); RED BLOOD CELL COUNT(AUTO) 2.55 MIL/uL (3.63-4.92); WHITE BLOOD COUNT (AUTO) 4.5 K/uL (3.8-11.8)
[2018-02-19 04:36] VITALS: BP 160/43
[2018-02-19 04:44] LABS: CARBON DIOXIDE 26 mmol/L (21-32); CHLORIDE 108 mmol/L (98-107); CHOLESTEROL 134 mg/dL (<200); CREATININE 2.8 mg/dL (0.6-1.3); GLUCOSE 88 mg/dL (74-106); HDL CHOLESTEROL 71 mg/dL (40-60); MAGNESIUM 2.3 mg/dL (1.8-2.4); TRIGLYCERIDES 48 MG/DL (30-150); UREA NITROGEN, BLOOD 58 mg/dL (7-18)
[2018-02-19 04:59] LABS: THYROID STIMULATING HORMONE 30.005 mIU/mL (0.358-3.740)
[2018-02-19] MEDS: LEVOTHYROXINE SODIUM 50 MCG TABLET PO SCH (06:07)
--- NOTE | 2018-02-19 07:25 | NUR ---
Patient resting comfortably in bed, no s/s of distress. stable condition. sinus marcela on tele. MD aware. significant decrease in hemoglobin/hematocrit - will notify .
[2018-02-19 07:46] VITALS: BP 166/56
[2018-02-19] MEDS: FUROSEMIDE 40 MG TABLET PO SCH ×2 (08:22→16:43)
[2018-02-19] MEDS: PANTOPRAZOLE SODIUM 40 MG VIAL IV SCH (08:22)
[2018-02-19] MEDS: AMLODIPINE 10 MG TABLET PO SCH (08:23)
[2018-02-19] MEDS: hydrALAZINE HCL 50 MG TABLET PO SCH ×2 (08:23→22:05)
[2018-02-19] MEDS: ASPIRIN 81 MG TAB.CHEW PO SCH (08:23)
[2018-02-19] MEDS: POTASSIUM CHLORIDE 10 MEQ TAB.PRT.SR PO SCH (08:23)
[2018-02-19] MEDS: FERROUS SULFATE 325 MG TABEC PO SCH (08:23)
[2018-02-19] MEDS: METOPROLOL TARTRATE 25 MG TABLET PO SCH ×2 (08:24→21:00)
[2018-02-19] MEDS ORDERED: Medication Not On Formulary EA (Rosuvastatin Calcium (Crestor) 1 TAB) PO SCH (09:00)
--- NOTE | 2018-02-19 09:00 | NUR ---
NON-ADMINISTRATION - LOPRESSOR 25 MG PO: DECREASED HEART RATE.
[2018-02-19 11:30] VITALS: BP_SYST 123; BP_SYST 158; BP_DIAS 51; BP_DIAS 71
[2018-02-19] MEDS: POTASSIUM CHLORIDE 20 MEQ TAB.PRT.SR PO SCH (12:25)
[2018-02-19] MEDS ORDERED: SODI650T PO (12:45)
[2018-02-19 12:50] LABS: *BILIRUBIN,URIN NEGATIVE (NEGATIVE); *BLOOD, URINE NEGATIVE (NEGATIVE); *CLARITY,URINE CLEAR (CLEAR); *COLOR,URINE YELLOW (YELLOW); *KETONES,URINE NEGATIVE (NEGATIVE); *PROTEIN,URINE 2+ (NEGATIVE); *UROBILINOGEN,URINE 0.2 E.U./dl (NORMAL); LEUKOCYTE ESTERASE ,URINE TRACE (NEGATIVE); NITRITE, URINE NEGATIVE (NEGATIVE); UGLUCOSE NEGATIVE (NEGATIVE)
[2018-02-19 12:56] LABS: BACTERIA,URINE FEW /HPF (NONE SEEN); RBC,URINE 0-3 /HPF (0-3); SQUAMOUS EPITHELIAL CELL,UR FEW /HPF (NONE SEEN); WBC,URINE 0-3 /HPF (0-3)
[2018-02-19] MEDS: IV NS 1000 ML 1,000 ML IV PRN (14:40)
[2018-02-19 15:36] LABS: *CREATININE,URINE 26.3 mg/dL (30-125); *URINE TOTAL PROTEIN RANDOM 46.1 mg/dL (<150/24HR)
[2018-02-19 15:46] VITALS: BP 156/56
[2018-02-19] MEDS: SODIUM BICARBONATE 650 MG TABLET PO SCH (16:45)
--- NOTE | 2018-02-19 16:46 | NUR ---
NON-ADMINISTRATION - LASIX 120 MG PO. DECREASED POTASSIUM LEVELS. WILL MONITOR POTASSIUM LEVELS ONCE NEW VALUE IS OBTAINED.
--- NOTE | 2018-02-19 17:28 | NUR ---
STABLE THROUGHOUT SHIFT. NO SIGNS OF DISTRESS. SINUS RHYTHM THROUGHOUT SHIFT. ELEVATED BP - BP MEDICATIONS SCHEDULED. IVF RUNNING. NO COMPLAINTS OF PAIN. CALL LIGHT WITHIN REACH OF PATIENT, BED ALARM ON. BEDSIDE COMMODE AT BEDSIDE. SAFETY MEASURES IMPLEMENTED.
--- NOTE | 2018-02-19 19:00 | NUR ---
Received patient in bed alert, oriented no sob no chest pain noted, rythm sinus marcela 50 to 60, no complain of pain noted at this time. assisted with toileting, daughter at bedside, call light within reach. cont to monitor.
[2018-02-19 19:31] VITALS: BP 133/52
[2018-02-19] MEDS: ATORVASTATIN 10 MG TABLET PO SCH (22:05)
--- NOTE | 2018-02-19 22:06 | NUR ---
LOPRESSOR MEDICATION HELD HEART RATE 58.
[2018-02-20 00:35] VITALS: BP 153/49
[2018-02-20 04:00] VITALS: BP 155/52
[2018-02-20 05:37] LABS: BASOPHILS % (AUTO) 0.4 % (0.0-2.0); EOSINOPHILS # (AUTO) 0.1 K/uL (0.0-0.7); EOSINOPHILS % (AUTO) 2.2 % (0.0-7.0); HEMATOCRIT 24.8 % (31.2-41.9); HEMOGLOBIN 8.2 g/dL (10.9-14.3); LYMPHOCYTES # (AUTO) 0.5 K/uL (20.0-40.0); LYMPHOCYTES % (AUTO) 12.7 % (20.5-51.5); MEAN CORPUSCULAR HEMOGLOBIN 31.5 uug (24.7-32.8); MEAN CORPUSCULAR HGB CONC 33 g/dL (32.3-35.6); MEAN CORPUSCULAR VOLUME 94.7 fL (75.5-95.3); MONOCYTES # (AUTO) 0.4 K/uL (2.0-10.0); MONOCYTES % (AUTO) 9.9 % (0.0-11.0); NEUTROPHILS # (AUTO) 2.9 K/uL (1.8-8.9); NEUTROPHILS % (AUTO) 74.8 % (38.5-71.5); PLATELET COUNT (AUTO) 128 K/uL (179-408); RED BLOOD CELL COUNT(AUTO) 2.62 MIL/uL (3.63-4.92); WHITE BLOOD COUNT (AUTO) 3.8 K/uL (3.8-11.8)
[2018-02-20 05:57] LABS: ALANINE AMINOTRANSFERASE 23 U/L (14-59); ALKALINE PHOSPHATASE 49 U/L (50-136); ASPARTATE AMINOTRANSFERASE 39 U/L (15-37); BILIRUBIN,TOTAL 0.4 mg/dL (0.2-1.0); CARBON DIOXIDE 26 mmol/L (21-32); CHLORIDE 109 mmol/L (98-107); CREATININE 2.5 mg/dL (0.6-1.3); GLUCOSE 97 mg/dL (74-106); MAGNESIUM 2.2 mg/dL (1.8-2.4); PHOSPHOROUS 3.2 mg/dL (2.5-4.9); POTASSIUM 3.3 mmol/L (3.5-5.1); TOTAL PROTEIN, SERUM 6.8 g/dL (6.4-8.2); UREA NITROGEN, BLOOD 45 mg/dL (7-18)
[2018-02-20 06:02] LABS: CARBON DIOXIDE 28 mmol/L (21-32); CHLORIDE 109 mmol/L (98-107); CREATININE 2.4 mg/dL (0.6-1.3); GLUCOSE 96 mg/dL (74-106); POTASSIUM 3.3 mmol/L (3.5-5.1); UREA NITROGEN, BLOOD 52 mg/dL (7-18)
--- NOTE | 2018-02-20 06:10 | NUR ---
PATIENT SLEPT MOST OF THE NIGHT, NO SOB NO CHEST PAIN, NO COMPLAIN OF PAIN AT THIS TIME. RYTHM SINUS RYTHM SINUS DARIO FROM 46 TO 67. ASSISTED WITH TOILETING, CALL LIGHT WITHIN REACH.
[2018-02-20] MEDS: IV NS 1000 ML 1,000 ML IV PRN ×2 (06:31→18:20)
[2018-02-20] MEDS: LEVOTHYROXINE SODIUM 50 MCG TABLET PO SCH (06:33)
--- NOTE | 2018-02-20 07:13 | NUR ---
patient resting comfortably in bed. sinus marcela on tele at this time. elevated BP - will monitor and manage. seen by special order jeweler last night. stable condition at this time. no s/s of distress. bed in locked/low position, side rails up x2, bed alarm on, call light within reach of patient. bedside commode at bedside. safety measures implemented.
[2018-02-20] MEDS: AMLODIPINE 10 MG TABLET PO SCH (08:20)
[2018-02-20] MEDS: hydrALAZINE HCL 50 MG TABLET PO SCH ×2 (08:20→21:42)
[2018-02-20] MEDS: ASPIRIN 81 MG TAB.CHEW PO SCH (08:20)
[2018-02-20] MEDS: FUROSEMIDE 40 MG TABLET PO SCH ×3 (08:21→20:23)
[2018-02-20] MEDS: PANTOPRAZOLE SODIUM 40 MG VIAL IV SCH (08:21)
[2018-02-20] MEDS: FERROUS SULFATE 325 MG TABEC PO SCH (08:21)
[2018-02-20] MEDS: POTASSIUM CHLORIDE 20 MEQ TAB.PRT.SR PO SCH (08:21)
[2018-02-20] MEDS: POTASSIUM CHLORIDE 10 MEQ TAB.PRT.SR PO SCH (08:21)
[2018-02-20] MEDS: METOPROLOL TARTRATE 25 MG TABLET PO SCH (08:21)
[2018-02-20] MEDS: SODIUM BICARBONATE 650 MG TABLET PO SCH ×2 (08:34→17:50)
[2018-02-20 11:12] VITALS: BP 141/55
--- NOTE | 2018-02-20 13:35 | NUR ---
patient being seen by physical therapy at this time.
[2018-02-20] MEDS: NEOMY/BACITRAC/POLYMI OINT 28.35 GM TUBE TOP SCH (14:13)
[2018-02-20] MEDS ORDERED: POTASSIUM CHLORIDE 10 MEQ TAB.PRT.SR PO ONE (14:45)
[2018-02-20 15:22] VITALS: BP 161/51
--- NOTE | 2018-02-20 17:29 | NUR ---
non-administration lasix 120 mg PO - Potassium currently 3.3
--- NOTE | 2018-02-20 18:09 | NUR ---
BMP ordered by Dr. Alarcon. Awaiting potassium results to decide whether or not lasix 120 mg PO is safe to administer.
--- NOTE | 2018-02-20 18:12 | NUR ---
No significant changes throughout shift. BP continues to be elevated, menu planner notified. PT evaluated patient today and recommends front wheel walker and right sided AFO. Sinus marcela on telemetry at this time. No signs of distress. stable condition. IV fluids running. bedside commode at bedside. bed alarm on, call light within reach. safety measures implemented.
--- NOTE | 2018-02-20 18:52 | NUR ---
Dr. Alarcon confirmed that it is okay to administer Coreg 6.25 mg PO with heart rate of 55. sinus marcela.
--- NOTE | 2018-02-20 18:53 | NUR ---
Dr. Alarcon confirmed that it is okay to administer Coreg 6.25 mg PO.
[2018-02-20 19:44] LABS: CARBON DIOXIDE 25 mmol/L (21-32); CHLORIDE 110 mmol/L (98-107); CREATININE 2.5 mg/dL (0.6-1.3); GLUCOSE 175 mg/dL (74-106); POTASSIUM 3.5 mmol/L (3.5-5.1); UREA NITROGEN, BLOOD 49 mg/dL (7-18)
[2018-02-20 19:55] VITALS: BP 154/47
--- NOTE | 2018-02-20 20:00 | NUR ---
RECEIVED PATIENT AWAKE IN BED. A/O X4. PATIENT DENIES PAIN OR DISCOMFORT. NO RESP. DISTRESS. IVF INFUSING WELL TO LEFT FA #22 GAUGE. RECEIVED NEW ORDERS FOR PATIENT TO HAVE ULTRASOUND OF GALLBLADDER AND CT SCAN OF ABDOMEN AND PELVIS WITH CONTRAST. PATIENT PLACED ON TELE ORDERED, SR. VS WNL. DENIES ANY NAUSEA OR VOMITING. ALSO RECEIVED ORDER FOR PATIENT TO HAVE EGD PROCEDURE PHYLLIS. CONSENT SIGNED AND PLACED IN CHART, PATIENT EDUCATED ON PROCEDURE/TEST AND WILL BE NPO AFTER MIDNIGHT. PATIENT VERBALIZED UNDERSTANDING. REFRIGERATION INSTALLER NOTIFIED. ALL NEEDS ATTENDED. CALL LIGHT IN REACH. ALL NEEDS ATTENDED. WILL CONTINUE TO MONITOR. Addendum: 02/20/18 at 2132 by MAI GRIFFITH LVN PLEASE DISREGARD NOTE. WRONG PATIENT.
--- NOTE | 2018-02-20 20:01 | NUR ---
RECEIVED PATIENT AWAKE IN BED WITH DAUGHTER AT BEDSIDE. PATIENT IS A/O X4. VERY PLEASANT WHEN APPROACHED. ON TELE SR 60-61 WITH PERIODS OF SB IN THE 50'S. VS WNL. PATIENT DENIES "PAIN," BUT C/O DISCOMFORT IN RIGHT ARM, SECONDARY TO PREVIOUS FALL. OFFERED TYLENOL BUT PATIENT REFUSED. NO RESP. DISTRESS NOTED. IVF INFUSING WELL TO LEFT FA #22 GAUGE. BED ALARM ON. CALL LIGHT IN REACH. ALL NEEDS ATTENDED. WILL CONTINUE TO MONITOR.
[2018-02-20] MEDS: ATORVASTATIN 10 MG TABLET PO SCH (20:23)
[2018-02-20] MEDS: CARVEDILOL 6.25 MG TABLET PO SCH (20:24)
--- NOTE | 2018-02-20 20:25 | NUR ---
RECEIVED REPORT THAT PATIENT IS TO HAVE LASIX 120MG AND COREG 6.25MG. PATIENTS HEART RATE VARIES FROM THE MID 50'S FROM LOW 60'S. WAITING FOR BMP RESULTS AND RECEIVED POTASSIUM OF 3.5. NOTIFIED DR. ZAMORA, CARDIO MD OF RESULTS AND CURRENT HEART RATE. RECEIVED VERBAL OK FOR PATIENT TO TAKE BOTH MEDS. ALL NEEDS ATTENDED. WILL CONTINUE TO MONITOR AND ASSESS.
[2018-02-20] MEDS ORDERED: CHOL100043 PO (23:36)
[2018-02-20] MEDS ORDERED: PARI1CAP PO (23:36)
[2018-02-21 00:30] VITALS: BP 95/47
[2018-02-21 05:22] VITALS: BP 152/44
--- NOTE | 2018-02-21 06:00 | NUR ---
PATIENT RESTING IN BED. DID NOT SLEEP THROUGHOUT THE NIGHT. OFFERED SLEEPING MEDICATION BUT PATIENT REFUSED. ON TELE SB 53. IVF INFUSING WELL. BED ALARM ON. CALL LIGHT IN REACH. ALL NEEDS ATTENDED. WILL CONTINUE TO MONITOR.
[2018-02-21] MEDS: PANTOPRAZOLE SODIUM 40 MG TABLET.DR PO SCH (06:22)
[2018-02-21] MEDS: LEVOTHYROXINE SODIUM 50 MCG TABLET PO SCH (06:22)
[2018-02-21 06:26] LABS: CARBON DIOXIDE 27 mmol/L (21-32); CHLORIDE 111 mmol/L (98-107); CREATININE 2.4 mg/dL (0.6-1.3); GLUCOSE 91 mg/dL (74-106); POTASSIUM 3.1 mmol/L (3.5-5.1); UREA NITROGEN, BLOOD 45 mg/dL (7-18)
[2018-02-21] MEDS: IV NS 1000 ML 1,000 ML IV PRN (06:56)
--- NOTE | 2018-02-21 07:59 | NUR ---
PATIENT RESTING COMFORTABLY IN BED. NO SIGNS OF DISTRESS. WILL MONITOR AND MANAGE BP. NO SIGNIFICANT CHANGES DURING THE NIGHT. BED ALARM ON, CALL LIGHT WITHIN REACH. BEDSIDE COMMODE AT BEDSIDE. SAFETY MEASURES IMPLEMENTED.
[2018-02-21] MEDS ORDERED: IV NORMAL SALINE 500 ML IV ONE (08:30)
--- NOTE | 2018-02-21 08:30 | NUR ---
NOTIFIED DNP OF PATIENT'S POTASSIUM OF 3.1 THIS MORNING. PATIENT HAS LASIX 120 MG PO TO BE GIVEN WITH K-DUR 20 MEQ, WHICH MAY NOT BE SUFFICIENT BECAUSE PATIENT'S POTASSIUM LEVEL IS 3.1. DNP ORDERED ADDITIONAL POTASSIUM CHLORIDE SUPPLEMENTATION IV, WHICH WILL ALSO BE ADMINISTERED.
[2018-02-21] MEDS: FUROSEMIDE 40 MG TABLET PO SCH ×2 (08:50→17:00)
[2018-02-21] MEDS: FERROUS SULFATE 325 MG TABEC PO SCH (08:51)
[2018-02-21] MEDS: POTASSIUM CHLORIDE 20 MEQ TAB.PRT.SR PO SCH (08:51)
[2018-02-21] MEDS: AMLODIPINE 10 MG TABLET PO SCH (08:51)
[2018-02-21] MEDS: hydrALAZINE HCL 50 MG TABLET PO SCH ×2 (08:51→20:25)
[2018-02-21] MEDS: CARVEDILOL 6.25 MG TABLET PO SCH ×2 (08:51→18:38)
[2018-02-21] MEDS: ASPIRIN 81 MG TAB.CHEW PO SCH (08:51)
[2018-02-21] MEDS: SODIUM BICARBONATE 650 MG TABLET PO SCH ×2 (08:53→18:33)
[2018-02-21] MEDS: NEOMY/BACITRAC/POLYMI OINT 28.35 GM TUBE TOP SCH (09:26)
[2018-02-21] MEDS: POTASSIUM CHLORIDE 50 ML IV SCH ×4 (09:33→11:30)
--- NOTE | 2018-02-21 09:44 | NUR ---
COREG 6.25 MG PO ADMINISTERED THIS MORNING WITH HEART RATE OF 54. DNP CONFIRMED THAT ITS OKAY TO GIVE.
[2018-02-21 11:10] VITALS: BP 146/49
[2018-02-21] MEDS ORDERED: POTASSIUM CHLORIDE 20 MEQ TAB.PRT.SR PO ONE (13:00)
[2018-02-21 18:36] VITALS: BP 140/50
--- NOTE | 2018-02-21 18:39 | NUR ---
Patient's family at bedside. MELODY Esteves will come to discuss discharge plan with patient. No discharge order so far. elevated bp 149/49, managed with medications. Sinus bradycardia on telemetry. Seen and cleared by wheelchair driver. bed in locked/low position, side rails up x2, bed alarm on, call light within reach of patient. safety measures implemented.
--- NOTE | 2018-02-21 18:48 | NUR ---
non-administration - lasix 120 mg po - risk of hypokalemia.
--- NOTE | 2018-02-21 19:10 | NUR ---
RECEIVED PT AWAKE ON BED, DENIES ANY SOB OR PAIN AT THIS TIME. IV SITE ON LFA, PATENT AND INTACT. SAFETY MEASURES INITIATED, CALL MCMILLAN WITHIN REACH.
[2018-02-21 20:00] VITALS: BP 161/41
[2018-02-21] MEDS: ATORVASTATIN 10 MG TABLET PO SCH (20:24)
[2018-02-22 04:14] VITALS: BP 149/42
[2018-02-22] MEDS: PANTOPRAZOLE SODIUM 40 MG TABLET.DR PO SCH (06:07)
[2018-02-22] MEDS: LEVOTHYROXINE SODIUM 50 MCG TABLET PO SCH (06:07)
--- NOTE | 2018-02-22 06:29 | NUR ---
PT RESTING COMFORTABLY ON BED, AAOX4, NO SIGNS OF RESPIRATORY DISTRESS NOTED. NO COMPLAINTS OF PAIN THROUGHOUT THE SHIFT. IV SITE ON RFA, PATENT AND INTACT. SAFE ENVIRONMENT MAINTAINED AT ALL TIMES, CALL MCMILLAN WITHIN REACH,
[2018-02-22] MEDS: hydrALAZINE HCL 50 MG TABLET PO SCH (08:07)
[2018-02-22] MEDS: POTASSIUM CHLORIDE 20 MEQ TAB.PRT.SR PO SCH (08:07)
[2018-02-22] MEDS: FERROUS SULFATE 325 MG TABEC PO SCH (08:07)
[2018-02-22] MEDS: ASPIRIN 81 MG TAB.CHEW PO SCH (08:07)
[2018-02-22] MEDS: AMLODIPINE 10 MG TABLET PO SCH (08:07)
[2018-02-22 08:08] VITALS: BP 153/55
[2018-02-22] MEDS: FUROSEMIDE 40 MG TABLET PO SCH (08:08)
[2018-02-22] MEDS: CARVEDILOL 6.25 MG TABLET PO SCH (08:08)
[2018-02-22] MEDS: SODIUM BICARBONATE 650 MG TABLET PO SCH (08:09)
[2018-02-22] MEDS: NEOMY/BACITRAC/POLYMI OINT 28.35 GM TUBE TOP SCH (08:09)
[2018-02-22] MEDS ORDERED: POTASSIUM CHLORIDE 20 MEQ TAB.PRT.SR PO ONE (09:00)
[2018-02-22] MEDS ORDERED: IV 1/2NS 1000 ML 1,000 ML IV PRN (09:00)
--- NOTE | 2018-02-22 10:17 | NUR ---
D/C ORDERS RECEIVED NOTED AND CARRIED OUT,D/C HEPLOCK .D/C INSTRUCTION AND EDUCATION GIVEN TO THE PT.PT SAID SHE ALL READY HAVE HER OPP WITH HER PCP IN NEXT WEEK,PT LEFT THE FACILITY VIA PRIVATE CAR IN STABLE CONDITION
== END 2018-02-22 10:10 | disposition home health service (06) | DRG 280 ==
LOC: ER 13:54 → TELE 16:20 → MED 02-21 19:51
PROVIDERS: ADMIT Hospitalist; ATTEND Hospitalist
PROC: 0JQ13ZZ Repair Face Subcutaneous Tissue and Fascia, Percutaneous Approach (ICD-10-PCS; principal; 2018-02-18)
DX: I13.0 Hypertensive heart and chronic kidney disease with heart failure and stage 1 through stage 4 chronic kidney disease, or unspecified chronic kidney disease (principal); N17.0 Acute kidney failure with tubular necrosis; I21.A1 Myocardial infarction type 2; I50.33 Acute on chronic diastolic (congestive) heart failure; E44.0 Moderate protein-calorie malnutrition; S01.81XA Laceration without foreign body of other part of head, initial encounter; S81.011A Laceration without foreign body, right knee, initial encounter; W01.0XXA Fall on same level from slipping, tripping and stumbling without subsequent striking against object, initial encounter; Y92.019 Unspecified place in single-family (private) house as the place of occurrence of the external cause; I25.2 Old myocardial infarction; Z82.49 Family history of ischemic heart disease and other diseases of the circulatory system; Z88.6 Allergy status to analgesic agent; Z88.0 Allergy status to penicillin; M21.371 Foot drop, right foot; M19.011 Primary osteoarthritis, right shoulder; N18.9 Chronic kidney disease, unspecified; E87.6 Hypokalemia; Z68.20 Body mass index [BMI] 20.0-20.9, adult; R29.6 Repeated falls; I48.91 Unspecified atrial fibrillation; Z79.01 Long term (current) use of anticoagulants; Z87.891 Personal history of nicotine dependence; I07.1 Rheumatic tricuspid insufficiency; E78.5 Hyperlipidemia, unspecified; E03.9 Hypothyroidism, unspecified; D16.9 Benign neoplasm of bone and articular cartilage, unspecified; I25.10 Atherosclerotic heart disease of native coronary artery without angina pectoris; I45.81 Long QT syndrome; M54.5 Low back pain
CPT/HCPCS: 36415; 70030-TC; 70450; 71045; 72125; 73030; 73060; 83735; 84100; 84156; 84300; 84443; 85025; 85730; 86850; 86900; 86901; 90715; 93005; 93307; A4217; A4663; A9150; C9113; J3480; J3490; J7030; J7040

== ENCOUNTER 2018-03-03 10:00 | Emergency (ER) | payer BC ==
[~2018-03-03] VITALS: Ht 157.5 cm; Wt 49.9 kg
[~2018-03-03 10:00] MED LIST changes: -AMLO10TA2 PO; +AMLO10TA6 PO; -APIX2.5T PO; +ASPI81TA31 PO; -ATOR40TA PO; +CHOL100043 PO; -EZET10TA13 PO; -FENO145T37 PO; +FERR325T24 PO; +FURO40TA5 PO; +HYDR100T27 PO; -HYDR25TA86 PO; -LEVO500T2 PO; +LEVO50TA8 PO; +PARI1CAP PO; +POTA10CA43 PO; +ROSU5TAB PO; +SODI650T PO
--- NOTE | 2018-03-03 10:49 | NUR ---
SUTURE REMOVED ABOVE R EYEBROW.
--- NOTE | 2018-03-03 10:49 | NUR ---
Patient discharged to home in stable conditon. Written and verbal after care instructions given. Patient verbalizes understanding of instructions. PT SELF-AMBULATED WITHOUT DIFFICULTY. SKIN INTACT ABOVE R EYEBROW. ALL BELONGINGS TAKEN W PT UPON D/C
[2018-03-03 10:50] VITALS: BP 130/72
== END 2018-03-03 10:51 | disposition home or self-care (01) ==
LOC: ER 10:00
DX: S01.81XD Laceration without foreign body of other part of head, subsequent encounter (principal); Z48.02 Encounter for removal of sutures; I10 Essential (primary) hypertension; Z88.0 Allergy status to penicillin; Z88.5 Allergy status to narcotic agent; Z88.8 Allergy status to other drugs, medicaments and biological substances; X58.XXXD Exposure to other specified factors, subsequent encounter
CPT/HCPCS: A4663

== ENCOUNTER 2018-09-30 11:57 | Inpatient (IN) | payer BC ==
[~2018-09-30] VITALS: Ht 157.5 cm; Wt 47.6 kg
[~2018-09-30 11:57] MED LIST changes: -AMLO10TA6 PO; +AMLO10TA7 PO
--- NOTE | 2018-09-30 12:07 | NUR ---
PT IS IN ROOM #2A. DR GILLETTE EVALUATED THE PT.
[2018-09-30] MEDS ORDERED: ACETAMINOPHEN ES 500 MG TABLET ONE (12:30)
[2018-09-30] MEDS ORDERED: ACETAMINOPHEN ES 500 MG TABLET PO ONE (12:45)
[2018-09-30 13:35] LABS: BASOPHILS % (AUTO) 0.6 % (0.0-2.0); EOSINOPHILS # (AUTO) 0.2 K/uL (0.0-0.7); EOSINOPHILS % (AUTO) 3.5 % (0.0-7.0); HEMOGLOBIN 10.4 g/dL (10.9-14.3); LYMPHOCYTES % (AUTO) 17.2 % (20.5-51.5); MEAN CORPUSCULAR HEMOGLOBIN 31.1 uug (24.7-32.8); MEAN CORPUSCULAR HGB CONC 33 g/dL (32.3-35.6); MEAN CORPUSCULAR VOLUME 95.7 fL (75.5-95.3); MONOCYTES # (AUTO) 0.5 K/uL (2.0-10.0); MONOCYTES % (AUTO) 8.1 % (0.0-11.0); NEUTROPHILS % (AUTO) 70.6 % (38.5-71.5); PLATELET COUNT (AUTO) 203 K/uL (179-408); RED BLOOD CELL COUNT(AUTO) 3.35 MIL/uL (3.63-4.92); WHITE BLOOD COUNT (AUTO) 5.7 K/uL (3.8-11.8)
[2018-09-30 13:40] LABS: CARBON DIOXIDE 27 mmol/L (21-32); CHLORIDE 99 mmol/L (98-107); CREATININE 3.5 mg/dL (0.6-1.3); GLUCOSE 148 mg/dL (74-106); POTASSIUM 3.4 mmol/L (3.5-5.1)
[2018-09-30 13:41] LABS: UREA NITROGEN, BLOOD 97 mg/dL (7-18)
[2018-09-30 13:46] LABS: ALANINE AMINOTRANSFERASE 29 U/L (14-59); ALKALINE PHOSPHATASE 64 U/L (50-136); ASPARTATE AMINOTRANSFERASE 35 U/L (15-37); BILIRUBIN,DIRECT 0.1 mg/dL (0.0-0.2); BILIRUBIN,TOTAL 0.3 mg/dL (0.2-1.0); TOTAL PROTEIN, SERUM 7.9 g/dL (6.4-8.2)
--- NOTE | 2018-09-30 14:29 | NUR ---
REPORT GIVEN TO AGRICULTURAL ENGINEERING TECHNICIANS. PT WAS TRANSFERED TO ROOM #320.
[2018-09-30] MEDS ORDERED: MAGNESIUM HYDROXIDE 30 ML LIQUID UDC PO PRN (14:30)
[2018-09-30] MEDS ORDERED: HYDROCODONE/APAP 5-325MG TABLET PO PRN (14:30)
[2018-09-30] MEDS ORDERED: ONDANSETRON 4 MG/2 ML VIAL IV PRN (14:30)
[2018-09-30] MEDS ORDERED: PARICALCITOL 1 MCG PO SCH (14:30)
[2018-09-30] MEDS ORDERED: Z GUARD REMEDY PASTE 57 GM TUBE TOP PRN (14:30)
--- NOTE | 2018-09-30 14:40 | NUR ---
Patient in from E.R. via gurney. Patient AAOX4. vitals stable no c/of pain IV line to LFA G22 patent. patient situated in bed placed on telemetry monitoring. patient in sinus bradycardia lowest been 42-47. large bruised area noted to forehead. and laceration above left knee noted. area treated in E.R. and steri-strips noted in place area with some bleeding notes. BLE dark purple bruises noted. bruises scattered, no skin tear noted.
[2018-09-30 15:20] VITALS: BP 157/52
[2018-09-30] MEDS ORDERED: HYDR-4076 PO (16:52)
[2018-09-30] MEDS ORDERED: AMIO100T4 PO (17:04)
[2018-09-30] MEDS ORDERED: NIFE30TA91 PO (17:05)
[2018-09-30] MEDS: SODIUM BICARBONATE 650 MG TABLET PO SCH (18:07)
[2018-09-30] MEDS: IV 1/2NS 1000 ML 1,000 ML IV PRN (18:08)
[2018-09-30 20:07] VITALS: BP 156/49
--- NOTE | 2018-09-30 20:20 | NUR ---
Received patient from the day shift. Pt has no complaints of pain, dizziness, SOB. AOx4, reports falling from a chair at home after 2 sleepless nights. Ambulatory with assistance. Daughter is at bedside. IV access checked, wound checked. Safety measures in place. Call light within reach. Will continue to monitor.
--- NOTE | 2018-09-30 20:50 | NUR ---
PATIENT HAS BP 156/[address] VERDIN IS MAKING ROUNDS. RN NOTIFIED MD THAT PATIENT IS ON LOPRESSOR 25 MG , HYDRALAZINE 100MG, PROCARDIA XL 30. DR VERDIN CHANGED HYDRALAZINE TO 75MG AND DISCONTINUED LOPRESSOR AND PROCARDIA. HYDRALAZINE 75MG GIVEN TO THE PATIENT PER NEW ORDER.
[2018-09-30] MEDS ORDERED: METOPROLOL TARTRATE 25 MG TABLET PO SCH (21:00)
[2018-09-30] MEDS ORDERED: hydrALAZINE HCL 50 MG TABLET PO SCH ×2 (21:00)
[2018-09-30] MEDS ORDERED: NIFEdipine XL 30 MG TABSR PO SCH (21:00)
[2018-09-30] MEDS: ATORVASTATIN 10 MG TABLET PO SCH (21:12)
[2018-09-30] MEDS: hydrALAZINE HCL 25 MG TABLET PO SCH (21:12)
[2018-09-30] MEDS: PARICALCITOL 1 MCG PO SCH (22:54)
[2018-10-01] VITALS (8 sets, daily range): BP systolic 167–200; BP diastolic 47–78
[2018-10-01] MEDS: ACETAMINOPHEN 325 MG TABLET PO PRN ×2 (01:00→19:51)
[2018-10-01 05:53] LABS: BASOPHILS % (AUTO) 0.6 % (0.0-2.0); EOSINOPHILS # (AUTO) 0.2 K/uL (0.0-0.7); EOSINOPHILS % (AUTO) 3.8 % (0.0-7.0); HEMATOCRIT 29.8 % (31.2-41.9); LYMPHOCYTES # (AUTO) 0.9 K/uL (20.0-40.0); LYMPHOCYTES % (AUTO) 17.3 % (20.5-51.5); MEAN CORPUSCULAR HEMOGLOBIN 31.7 uug (24.7-32.8); MEAN CORPUSCULAR HGB CONC 34 g/dL (32.3-35.6); MEAN CORPUSCULAR VOLUME 94.7 fL (75.5-95.3); MONOCYTES # (AUTO) 0.4 K/uL (2.0-10.0); MONOCYTES % (AUTO) 8.8 % (0.0-11.0); NEUTROPHILS # (AUTO) 3.5 K/uL (1.8-8.9); NEUTROPHILS % (AUTO) 69.5 % (38.5-71.5); PLATELET COUNT (AUTO) 167 K/uL (179-408); RED BLOOD CELL COUNT(AUTO) 3.15 MIL/uL (3.63-4.92)
--- NOTE | 2018-10-01 05:55 | NUR ---
Patient has a BP of 190/64 HR 48. Lexii Son QUALITY LIAISON, was notified by phone and text at 0515. Patient denies headache and dizziness, asymptomatic at this time. At 0545 Lexii Son ordered 10mg hydralazine IV PRN for SBP greater than 150. SBP is 185 at 0600. patient remains asymptomatic
[2018-10-01] MEDS: hydrALAZINE HCL 20 MG/1 ML VIAL IV PRN ×2 (06:01→15:31)
[2018-10-01 06:13] LABS: ALANINE AMINOTRANSFERASE 28 U/L (14-59); ALKALINE PHOSPHATASE 56 U/L (50-136); ASPARTATE AMINOTRANSFERASE 28 U/L (15-37); BILIRUBIN,TOTAL 0.3 mg/dL (0.2-1.0); CARBON DIOXIDE 31 mmol/L (21-32); CHLORIDE 101 mmol/L (98-107); CHOLESTEROL 145 mg/dL (<200); CREATININE 3.2 mg/dL (0.6-1.3); GLUCOSE 87 mg/dL (74-106); HDL CHOLESTEROL 68 mg/dL (40-60); MAGNESIUM 2.5 mg/dL (1.8-2.4); PHOSPHOROUS 5.6 mg/dL (2.5-4.9); POTASSIUM 3.4 mmol/L (3.5-5.1); TRIGLYCERIDES 65 MG/DL (30-150)
--- NOTE | 2018-10-01 06:15 | NUR ---
Hydralazine 10mg IV given. Continuing to monitor the patient. Patient is not in distress, sleeping. Comfort and safety measures are in place
[2018-10-01] MEDS: IV 1/2NS 1000 ML 1,000 ML IV PRN ×2 (06:17→19:45)
[2018-10-01 06:18] LABS: UREA NITROGEN, BLOOD 85 mg/dL (7-18)
[2018-10-01] MEDS: LEVOTHYROXINE SODIUM 50 MCG TABLET PO SCH (06:39)
--- NOTE | 2018-10-01 06:58 | NUR ---
Patient did not sleep well, fell asleep only at 0500. BP 167/47 HR 48 at 0700. Comfort and safety provided.
--- NOTE | 2018-10-01 07:00 | NUR ---
RECHECK BP 167/47 HR 48. CONT TO MONITOR.
--- NOTE | 2018-10-01 07:25 | NUR ---
PATIENT RECEIVED, IN THE BED, NO S/S OF DISTRESS, ACCORDING TO VERIFICATION ENGINEER NURSE SHE DIDN'T SLEEP WELL, BP IS 176/61 AT 07:25 AM, SHE HAS A OPEN WOUND ON LEFT THIGH ABOVE THE KNEE,SIGNS OF BLOOD SEEN ON THE DRESSING,GOING TO ORDER WOUND CONSULT, ALL SAFETY AND COMFORT MEASURES ARE IMPLEMENTED , BED IN LOW POSITION, LOCKED, CALL LIGHT IN REACH , WILL CONTINUE WITH PLAN OF CARE
[2018-10-01] MEDS: hydrALAZINE HCL 25 MG TABLET PO SCH (08:27)
[2018-10-01] MEDS: CHOLECALCIFEROL 1,000 UNIT TABLET PO SCH (08:27)
[2018-10-01] MEDS: FERROUS SULFATE 325 MG TABEC PO SCH (08:27)
[2018-10-01] MEDS: ASPIRIN 81 MG TAB.CHEW PO SCH (08:28)
[2018-10-01] MEDS: SODIUM BICARBONATE 650 MG TABLET PO SCH ×2 (08:28→17:58)
[2018-10-01] MEDS: PARICALCITOL 1 MCG PO SCH (08:28)
[2018-10-01] MEDS ORDERED: Medication Not On Formulary EA (Rosuvastatin Calcium (Crestor) 1 TAB) PO SCH (09:00)
[2018-10-01] MEDS ORDERED: AMLODIPINE 10 MG TABLET PO SCH ×2 (09:00)
[2018-10-01] MEDS ORDERED: hydrALAZINE HCL 50 MG TABLET PO SCH (09:45)
[2018-10-01] MEDS: hydrALAZINE HCL 50 MG TABLET PO SCH ×2 (14:04→21:12)
[2018-10-01] MEDS ORDERED: hydrALAZINE HCL 20 MG/1 ML VIAL IV ONE (16:43)
[2018-10-01] MEDS: AMLODIPINE 10 MG TABLET PO SCH (16:58)
[2018-10-01] MEDS: CARVEDILOL 12.5 MG TABLET PO SCH (17:59)
--- NOTE | 2018-10-01 18:15 | NUR ---
PATIENT IS IN THE BED, HER BLOOD PRESSURE IS 206/66, PRESCRIBED MEDICATIONS ARE GIVEN COREG 12.5 MG PO, AND HYDRALAZINE 10MG IV PER MD ORDER, SHE IS ASYMPTOMATIC, SHE STATES FEELS GOOD, ALL SAFETY AND COMFORT MEASURES ARE IMPLEMENTED, AND DAUGHTER ARE AT THE BED SIDE. NO S/S OF DISTRESS NOTED.
[2018-10-01] MEDS ORDERED: CARVEDILOL 12.5 MG TABLET PO ONE (18:45)
[2018-10-01] MEDS ORDERED: CLONIDINE HCL 0.1 MG TABLET PO PRN (19:00)
--- NOTE | 2018-10-01 19:24 | NUR ---
PT BP 209/63 HEART RATE 50. MONUMENT SETTER NOTIFIED, CLONIDINE ORDER AND GIVEN TO PT. REPORT ENDORSED TO TRANSITION RN.
[2018-10-01] MEDS: ATORVASTATIN 10 MG TABLET PO SCH (19:55)
[2018-10-02 00:45] VITALS: BP 157/61
[2018-10-02] MEDS: hydrALAZINE HCL 20 MG/1 ML VIAL IV PRN ×2 (04:08→12:41)
[2018-10-02 04:48] VITALS: BP 192/63
[2018-10-02] MEDS: hydrALAZINE HCL 50 MG TABLET PO SCH ×3 (06:08→21:17)
[2018-10-02] MEDS: LEVOTHYROXINE SODIUM 50 MCG TABLET PO SCH (06:08)
[2018-10-02 07:15] VITALS: BP 187/59
[2018-10-02] MEDS: CARVEDILOL 12.5 MG TABLET PO SCH (08:00)
[2018-10-02] MEDS: AMLODIPINE 10 MG TABLET PO SCH (08:06)
[2018-10-02] MEDS: ASPIRIN 81 MG TAB.CHEW PO SCH (08:06)
[2018-10-02] MEDS: PARICALCITOL 1 MCG PO SCH (08:07)
[2018-10-02] MEDS: SODIUM BICARBONATE 650 MG TABLET PO SCH ×2 (08:07→18:03)
[2018-10-02] MEDS: FERROUS SULFATE 325 MG TABEC PO SCH (08:07)
[2018-10-02] MEDS: CHOLECALCIFEROL 1,000 UNIT TABLET PO SCH (08:07)
[2018-10-02 08:12] LABS: CARBON DIOXIDE 26 mmol/L (21-32); CHLORIDE 103 mmol/L (98-107); CREATININE 2.6 mg/dL (0.6-1.3); GLUCOSE 82 mg/dL (74-106); POTASSIUM 3.2 mmol/L (3.5-5.1); UREA NITROGEN, BLOOD 64 mg/dL (7-18)
--- NOTE | 2018-10-02 08:16 | NUR ---
Coreg held. heart rate 45. Pt is asymptomatic, continue to monitor pt.
[2018-10-02 08:17] LABS: ALANINE AMINOTRANSFERASE 24 U/L (14-59); ALKALINE PHOSPHATASE 53 U/L (50-136); ASPARTATE AMINOTRANSFERASE 29 U/L (15-37); BILIRUBIN,TOTAL 0.3 mg/dL (0.2-1.0); TOTAL PROTEIN, SERUM 6.6 g/dL (6.4-8.2)
[2018-10-02] MEDS ORDERED: LEVOTHYROXINE SODIUM 50 MCG TABLET PO ONE (09:15)
[2018-10-02] MEDS: IV 1/2NS 1000 ML 1,000 ML IV PRN ×2 (10:54→23:29)
[2018-10-02] MEDS ORDERED: CARVEDILOL 25 MG TABLET PO ONE (12:30)
[2018-10-02 14:08] VITALS: BP 153/54
[2018-10-02] MEDS ORDERED: POTASSIUM CHLORIDE 20 MEQ TAB.PRT.SR PO ONE (14:45)
[2018-10-02 15:42] VITALS: BP 171/53
[2018-10-02] MEDS ORDERED: CARVEDILOL 12.5 MG TABLET PO SCH (18:00)
[2018-10-02] MEDS: CARVEDILOL 25 MG TABLET PO SCH (18:15)
--- NOTE | 2018-10-02 18:38 | NUR ---
PT IS RESTING IN BED WITH NO RESPIRATORY DISTRESS. PT IS ABLE TO SWALLOW MEDICATIONS WHOLE, FAMILY AT BEDSIDE THROUGH OUT THE DAY. LAST BP 168/59, HYDRALAZINE GIVEN. CONTINUE TO MONITOR PT.WILL ENDORSE TO CIRCUIT DESIGN ENGINEER.
[2018-10-02 20:03] VITALS: BP 178/57
[2018-10-02] MEDS: ATORVASTATIN 10 MG TABLET PO SCH (21:16)
[2018-10-03 00:45] VITALS: BP 168/54
[2018-10-03 04:33] VITALS: BP 162/49
[2018-10-03] MEDS: hydrALAZINE HCL 50 MG TABLET PO SCH ×3 (06:20→21:20)
--- NOTE | 2018-10-03 06:34 | NUR ---
Patient rested well in between care; assisted with hygiene needs; dressing to left leg reinforced; family at bedside last night; sbp remains elevated in the 160s'; needs attended.
[2018-10-03] MEDS ORDERED: LEVOTHYROXINE SODIUM 50 MCG TABLET PO SCH ×2 (07:00→13:00)
[2018-10-03] MEDS ORDERED: LEVOTHYROXINE SODIUM 100 MCG TABLET PO SCH (07:00)
[2018-10-03 08:00] VITALS: BP 184/58
--- NOTE | 2018-10-03 08:30 | NUR ---
Received patient with left thigh wound open and oozing, curlex no longer on, and did wound care cleaned with H2O and zeroform applied and wrapped with curlex drsg. No co pain. Fabio Mcnally RN
[2018-10-03] MEDS: CHOLECALCIFEROL 1,000 UNIT TABLET PO SCH (09:42)
[2018-10-03] MEDS: ASPIRIN 81 MG TAB.CHEW PO SCH (09:42)
[2018-10-03] MEDS: AMLODIPINE 10 MG TABLET PO SCH (09:42)
[2018-10-03] MEDS: FERROUS SULFATE 325 MG TABEC PO SCH (09:43)
[2018-10-03] MEDS: SODIUM BICARBONATE 650 MG TABLET PO SCH ×2 (09:44→18:11)
[2018-10-03] MEDS: CARVEDILOL 25 MG TABLET PO SCH (09:44)
[2018-10-03] MEDS: PARICALCITOL 1 MCG PO SCH (10:07)
--- NOTE | 2018-10-03 11:00 | NUR ---
Ladle Handler visits patient, updated, and orders written. Patient aware of increased bp, and orders written. Fabio Mcnally RN
[2018-10-03 11:06] VITALS: BP 160/56
[2018-10-03 15:24] VITALS: BP 165/58
--- NOTE | 2018-10-03 18:00 | NUR ---
Family members at bedside visiting with patient, and given privacy to visit. Fabio Mcnally RN
--- NOTE | 2018-10-03 19:20 | NUR ---
RECEIVED PATIENT LYING IN BED. FAMILY ON BEDSIDE. AAOX4. IN NO ACUTE DISTRESS. DENIES ANY PAIN OR SOB. IV SITE ON LEFT FA INTACT AND PATENT. SINUS DARIO ON TELE AT 52/MIN. LEFT THIGH WITH DRESSING INTACT. SAFETY MEASURE INITIATED AND CALL MCMILLAN WITHIN REACH.
[2018-10-03] MEDS: ATORVASTATIN 10 MG TABLET PO SCH (20:08)
[2018-10-03] MEDS: NIFEdipine XL 60 MG TABSR PO SCH (20:09)
[2018-10-03 20:34] VITALS: BP 157/54
[2018-10-04] VITALS (8 sets, daily range): BP systolic 124–153; BP diastolic 41–98
[2018-10-04] MEDS: ZOLPIDEM 5 MG TABLET PO PRN (01:49)
[2018-10-04] MEDS: hydrALAZINE HCL 50 MG TABLET PO SCH ×3 (05:43→22:00)
[2018-10-04] MEDS: LEVOTHYROXINE SODIUM 150 MCG TABLET PO SCH (06:10)
--- NOTE | 2018-10-04 06:16 | NUR ---
AAOX4. IN NO ACUTE DISTRESS. DENIES ANY PAIN OR SOB. SLEPT WELL AFTER AMBIEN 5MG PRN PER ORDER GIVEN. IV SITE ON LEFT FA INTACT AND PATENT. SINUS DARIO ON TELE AT 54/MIN. LEFT THIGH DRESSING INTACT. SAFETY MEASURE MAINTAINED AND CALL MCMILLAN WITHIN REACH.
--- NOTE | 2018-10-04 06:47 | NUR ---
WOUND CARE CONSULT WOUND CARE RECEIVED CONSULT FOR LEFT THIGH ABOVE THE KNEE ASSESSMENT. WOUND CARE WILL DEFER CONSULT AND TREATMENT PLANS TO PLASTIC SURGICAL TEAM WHO ARE CURRENTLY FOLLOWING THIS PATIENT. PATIENT WITH SUMMER AT 20, WILL SEE PRN.
--- NOTE | 2018-10-04 08:43 | NUR ---
INFORMATION SENT: FACESHEET,PROGRESS NOTES 10/03,UR-10/03,24 HOURS REPORT,CONSULTATION INSURANCE NAME: [facility] FAX NUMBER: [phone] FAX SENT
[2018-10-04] MEDS: ASPIRIN 81 MG TAB.CHEW PO SCH (08:48)
[2018-10-04] MEDS: CHOLECALCIFEROL 1,000 UNIT TABLET PO SCH (08:48)
[2018-10-04] MEDS: NIFEdipine XL 60 MG TABSR PO SCH ×2 (08:48→20:31)
[2018-10-04] MEDS: FERROUS SULFATE 325 MG TABEC PO SCH (08:49)
[2018-10-04] MEDS: SODIUM BICARBONATE 650 MG TABLET PO SCH ×2 (08:50→16:56)
[2018-10-04] MEDS: PARICALCITOL 1 MCG PO SCH (08:50)
--- NOTE | 2018-10-04 09:00 | NUR ---
Patient in bed with family calling, daughter and requesting update. Updated on present condition, and meds.
--- NOTE | 2018-10-04 12:30 | NUR ---
Patient resting quietly in bed with family at bedside visiting. No co pain. Patient eating lunch. Fabio Mcnally RN
--- NOTE | 2018-10-04 17:30 | NUR ---
A/O X 4. NO SIGNS OF ACUTE DISTRESS. CALL LIGHTS WITHIN REACH. SIDE RAILS UP X2. COMFORT MEASURES PROVIDED. Addendum: 10/05/18 at 0711 by JACOB RAMIREZ RN TIME IS NOT 17:30. CORRECT TIME IS 19:30.
--- NOTE | 2018-10-04 18:30 | NUR ---
Patient drsg changed, skin tear left thigh, removed with NS rinse, and cleaned with wet 4x4, and zeroform applied. Rewrapped with smitha drsg. Fabio Mcnally RN
[2018-10-04] MEDS: ATORVASTATIN 10 MG TABLET PO SCH (20:30)
[2018-10-05] MEDS: ZOLPIDEM 5 MG TABLET PO PRN (03:01)
[2018-10-05 03:15] VITALS: BP 134/50
[2018-10-05] MEDS: hydrALAZINE HCL 50 MG TABLET PO SCH ×3 (06:00→13:01)
[2018-10-05] MEDS: LEVOTHYROXINE SODIUM 150 MCG TABLET PO SCH (06:52)
[2018-10-05 07:51] LABS: BASOPHILS % (AUTO) 0.4 % (0.0-2.0); EOSINOPHILS # (AUTO) 0.2 K/uL (0.0-0.7); EOSINOPHILS % (AUTO) 3.3 % (0.0-7.0); HEMATOCRIT 30.7 % (31.2-41.9); HEMOGLOBIN 10.2 g/dL (10.9-14.3); LYMPHOCYTES # (AUTO) 1.2 K/uL (20.0-40.0); LYMPHOCYTES % (AUTO) 17.7 % (20.5-51.5); MEAN CORPUSCULAR HEMOGLOBIN 31.4 uug (24.7-32.8); MEAN CORPUSCULAR HGB CONC 33 g/dL (32.3-35.6); MONOCYTES # (AUTO) 0.5 K/uL (2.0-10.0); MONOCYTES % (AUTO) 7.9 % (0.0-11.0); NEUTROPHILS # (AUTO) 4.8 K/uL (1.8-8.9); NEUTROPHILS % (AUTO) 70.7 % (38.5-71.5); PLATELET COUNT (AUTO) 189 K/uL (179-408); RED BLOOD CELL COUNT(AUTO) 3.24 MIL/uL (3.63-4.92); WHITE BLOOD COUNT (AUTO) 6.8 K/uL (3.8-11.8)
[2018-10-05 08:04] LABS: CARBON DIOXIDE 24 mmol/L (21-32); CHLORIDE 105 mmol/L (98-107); CREATININE 2.7 mg/dL (0.6-1.3); GLUCOSE 94 mg/dL (74-106); MAGNESIUM 2.4 mg/dL (1.8-2.4); PHOSPHOROUS 3.6 mg/dL (2.5-4.9); POTASSIUM 3.3 mmol/L (3.5-5.1); UREA NITROGEN, BLOOD 51 mg/dL (7-18)
[2018-10-05] MEDS: CHOLECALCIFEROL 1,000 UNIT TABLET PO SCH (08:41)
[2018-10-05] MEDS: FERROUS SULFATE 325 MG TABEC PO SCH (08:41)
[2018-10-05] MEDS: ASPIRIN 81 MG TAB.CHEW PO SCH (08:41)
[2018-10-05] MEDS: SODIUM BICARBONATE 650 MG TABLET PO SCH (08:42)
[2018-10-05] MEDS: PARICALCITOL 1 MCG PO SCH (08:42)
[2018-10-05] MEDS: NIFEdipine XL 60 MG TABSR PO SCH (08:45)
[2018-10-05] MEDS ORDERED: POTASSIUM CHLORIDE 20 MEQ TAB.PRT.SR PO ONE (09:00)
--- NOTE | 2018-10-05 09:13 | NUR ---
INFORMATION SENT: ANGELINE CHIU NOTES 10/04,UR 10/04,24 HOURS REPORT FAXED TO:LETIC[facility]ON[facility] [phone] FAX SENT
--- NOTE | 2018-10-05 11:00 | NUR ---
Family member male comes to nurse station and asking if patient will be discharged today, and charge nurse giving information that the intention is for the patient to be discharged today. Fabio Mcnally RN
[2018-10-05 11:30] VITALS: BP 132/49
[2018-10-05 13:01] VITALS: BP 128/38
[2018-10-05] MEDS ORDERED: HYDR100T27 PO (13:08)
[2018-10-05] MEDS ORDERED: LEVO150T PO (13:08)
[2018-10-05] MEDS ORDERED: NIFE-2 PO (13:08)
[2018-10-05] MEDS ORDERED: FURO-151 PO (13:08)
[2018-10-05] MEDS ORDERED: AMIO200T4 PO (13:08)
[2018-10-05] MEDS ORDERED: AMIODARONE HCL 200 MG TABLET PO SCH (13:15)
--- NOTE | 2018-10-05 15:00 | NUR ---
Patient being discharged to home, and given instructions regarding meds at home, rx, activity, diet, follow up care, wound care at home, and supplies patient requested. Domingo [employer]BE[employer] HELPER visits family-patient, and gives instructions regarding meds synthroid, and to taper dosage, following up with MD. Patient and caregiver acknowledge understanding information received. Fabio Mcnally RN
--- NOTE | 2018-10-05 15:20 | NUR ---
Patient escorted to [facility], and discharged to home via wc, and caregiver taking patient home by private vehicle. Fabio Mcnally RN
[2018-10-05] MEDS ORDERED: FUROSEMIDE 40 MG TABLET PO SCH (17:00)
[2018-10-06] MEDS ORDERED: SODIUM BICARBONATE 650 MG TABLET PO SCH (09:00)
--- NOTE | 2018-10-06 10:05 | NUR ---
INFORMATION SENT: FACESHEET,PROGRESS NOTES 10/05,24 HOURS REPORT,DISCHARGE SUMMARY INSURANCE NAME: [facility] FAX NUMBER: [phone] FAX SENT
--- NOTE | 2018-10-10 09:09 | NUR ---
INFORMATION SENT: FACESHEET,DISCHARGE SUMMARY. INSURANCE NAME: [facility] FAX NUMBER: [phone] FAX SENT
== END 2018-10-05 15:30 | disposition home health service (06) | DRG 280 ==
LOC: ER 11:57 → TELE3 14:13 → TELE-TD3 10-01 19:11 → TELE3 10-03 15:38
PROVIDERS: ADMIT Internal Medicine; ATTEND Internal Medicine
DX: I21.4 Non-ST elevation (NSTEMI) myocardial infarction (principal); N17.0 Acute kidney failure with tubular necrosis; I13.0 Hypertensive heart and chronic kidney disease with heart failure and stage 1 through stage 4 chronic kidney disease, or unspecified chronic kidney disease; N18.4 Chronic kidney disease, stage 4 (severe); I50.32 Chronic diastolic (congestive) heart failure; E03.9 Hypothyroidism, unspecified; R00.1 Bradycardia, unspecified; Y92.010 Kitchen of single-family (private) house as the place of occurrence of the external cause; T46.1X5A Adverse effect of calcium-channel blockers, initial encounter; S71.112A Laceration without foreign body, left thigh, initial encounter; W18.30XA Fall on same level, unspecified, initial encounter; Y93.89 Activity, other specified; S00.83XA Contusion of other part of head, initial encounter; Z79.890 Hormone replacement therapy; Z87.891 Personal history of nicotine dependence; I48.0 Paroxysmal atrial fibrillation; R29.6 Repeated falls; E78.5 Hyperlipidemia, unspecified; E87.6 Hypokalemia; D63.8 Anemia in other chronic diseases classified elsewhere; Z79.82 Long term (current) use of aspirin; I67.2 Cerebral atherosclerosis; G31.84 Mild cognitive impairment of uncertain or unknown etiology; I25.10 Atherosclerotic heart disease of native coronary artery without angina pectoris
CPT/HCPCS: 36415; 70030-TC; 70450; 71045; 83735; 84100; 84443; 84481; 85025; 93005; 93307; A4217; A4663; A9150; G0378; J0360; J3490; J7030

== ENCOUNTER 2019-06-30 15:03 | Emergency (ER) | payer BC ==
[~2019-06-30] VITALS: Ht 157.5 cm; Wt 43.1 kg
[~2019-06-30 15:03] MED LIST changes: +AMIO100T4 PO; +AMIO200T4 PO; -AMLO10TA7 PO; +FURO-151 PO; -FURO40TA5 PO; +LEVO150T PO; -LEVO50TA8 PO; -METO25TA6 PO; +NIFE-60 PO
[2019-06-30 16:00] LABS: BASOPHILS % (AUTO) 0.8 % (0.0-2.0); EOSINOPHILS # (AUTO) 0.1 K/uL (0.0-0.7); EOSINOPHILS % (AUTO) 1.2 % (0.0-7.0); HEMATOCRIT 40.6 % (31.2-41.9); HEMOGLOBIN 12.8 g/dL (10.9-14.3); LYMPHOCYTES # (AUTO) 0.7 K/uL (20.0-40.0); LYMPHOCYTES % (AUTO) 12.3 % (20.5-51.5); MEAN CORPUSCULAR HEMOGLOBIN 28.6 uug (24.7-32.8); MEAN CORPUSCULAR HGB CONC 32 g/dL (32.3-35.6); MEAN CORPUSCULAR VOLUME 90.8 fL (75.5-95.3); MONOCYTES # (AUTO) 0.3 K/uL (2.0-10.0); MONOCYTES % (AUTO) 5.5 % (0.0-11.0); NEUTROPHILS # (AUTO) 4.4 K/uL (1.8-8.9); NEUTROPHILS % (AUTO) 80.2 % (38.5-71.5); PLATELET COUNT (AUTO) 249 K/uL (179-408); RED BLOOD CELL COUNT(AUTO) 4.47 MIL/uL (3.63-4.92); WHITE BLOOD COUNT (AUTO) 5.5 K/uL (3.8-11.8)
[2019-06-30 16:08] LABS: CARBON DIOXIDE 27 mmol/L (21-32); CHLORIDE 104 mmol/L (98-107); CREATININE 2.8 mg/dL (0.6-1.3); GLUCOSE 83 mg/dL (74-106); POTASSIUM 3.7 mmol/L (3.5-5.1); UREA NITROGEN, BLOOD 66 mg/dL (7-18)
[2019-06-30 16:13] LABS: ALANINE AMINOTRANSFERASE 17 U/L (14-59); ALKALINE PHOSPHATASE 86 U/L (50-136); ASPARTATE AMINOTRANSFERASE 26 U/L (15-37); BILIRUBIN,DIRECT 0.1 mg/dL (0.0-0.2); BILIRUBIN,TOTAL 0.5 mg/dL (0.2-1.0); LIPASE 139 U/L (73-393); TOTAL PROTEIN, SERUM 7.9 g/dL (6.4-8.2)
--- NOTE | 2019-06-30 16:36 | NUR ---
PT IS IN ROOM #1B. DR CLANCY EVALUATED THE PT.
[2019-06-30] MEDS ORDERED: LIDOCAINE HCL 2% 20 ML VIAL ONE (16:46)
--- NOTE | 2019-06-30 16:54 | NUR ---
PARCENTESIS PROCEDURE WAS PERFORMED BY DR CLANCY. 2400 ML OF FLUIDS WERE REMOVED AND SENT TO LABORATORY . PT TOLERATED TO PROCEDURE WITHOUT COMPLICATIONS. CONTINUE TO MONITOR THE PT.
--- NOTE | 2019-06-30 18:30 | NUR ---
PT WAS D/C'd TO HOME AFTER DR CLANCY RE-EVALUATION. D/C INSTRUCTIONS GIVEN TO THE PT AND TO HER VICTOR HUGOHTER. NO S/S OF ACUTE DISTRES AT THE TIME OF DISCHARGE.
[2019-06-30 18:32] VITALS: BP 153/79
== END 2019-06-30 18:34 | disposition home or self-care (01) ==
LOC: ER 15:03
DX: R18.8 Other ascites (principal); N18.9 Chronic kidney disease, unspecified; Z88.8 Allergy status to other drugs, medicaments and biological substances; Z79.899 Other long term (current) drug therapy; Z88.0 Allergy status to penicillin; Z88.5 Allergy status to narcotic agent; Z79.82 Long term (current) use of aspirin
CPT/HCPCS: 36415; 49082; 71045; 80048; 80076; 83605; 83690; 85025; 85730; 86850; 86900; 86901; 87040 ×2; 87070; 87205; 93005; 99285; J3490; A4663

== ENCOUNTER 2019-07-01 13:00 | Inpatient (IN) | payer BC ==
[~2019-07-01] VITALS: Ht 160 cm; Wt 45.4 kg
[2019-07-01] MEDS ORDERED: IV NORMAL SALINE 500 ML BAG IV ONE (13:45)
[2019-07-01 14:04] LABS: BASOPHILS % (AUTO) 0.9 % (0.0-2.0); EOSINOPHILS # (AUTO) 0.1 K/uL (0.0-0.7); EOSINOPHILS % (AUTO) 1.2 % (0.0-7.0); HEMATOCRIT 34.5 % (31.2-41.9); HEMOGLOBIN 10.8 g/dL (10.9-14.3); LYMPHOCYTES # (AUTO) 0.5 K/uL (20.0-40.0); MEAN CORPUSCULAR HEMOGLOBIN 29.2 uug (24.7-32.8); MEAN CORPUSCULAR HGB CONC 32 g/dL (32.3-35.6); MEAN CORPUSCULAR VOLUME 92.6 fL (75.5-95.3); MONOCYTES # (AUTO) 0.4 K/uL (2.0-10.0); MONOCYTES % (AUTO) 7.8 % (0.0-11.0); NEUTROPHILS # (AUTO) 3.9 K/uL (1.8-8.9); NEUTROPHILS % (AUTO) 79.1 % (38.5-71.5); PLATELET COUNT (AUTO) 225 K/uL (179-408); RED BLOOD CELL COUNT(AUTO) 3.72 MIL/uL (3.63-4.92); WHITE BLOOD COUNT (AUTO) 4.9 K/uL (3.8-11.8)
[2019-07-01 14:05] LABS: CARBON DIOXIDE 27 mmol/L (21-32); CHLORIDE 105 mmol/L (98-107); CREATININE 2.7 mg/dL (0.6-1.3); GLUCOSE 98 mg/dL (74-106); POTASSIUM 3.3 mmol/L (3.5-5.1); UREA NITROGEN, BLOOD 66 mg/dL (7-18)
[2019-07-01 14:11] LABS: ALANINE AMINOTRANSFERASE 17 U/L (14-59); ALKALINE PHOSPHATASE 72 U/L (50-136); ASPARTATE AMINOTRANSFERASE 24 U/L (15-37); BILIRUBIN,DIRECT 0.1 mg/dL (0.0-0.2); BILIRUBIN,TOTAL 0.4 mg/dL (0.2-1.0); LIPASE 145 U/L (73-393); TOTAL PROTEIN, SERUM 6.7 g/dL (6.4-8.2)
[2019-07-01] MEDS ORDERED: HYDROCODONE/APAP 5-325MG TABLET PO PRN (15:00)
[2019-07-01] MEDS ORDERED: Z GUARD REMEDY PASTE 57 GM TUBE TOP PRN (15:00)
[2019-07-01] MEDS ORDERED: ONDANSETRON 4 MG/2 ML VIAL IV PRN (15:00)
[2019-07-01] MEDS ORDERED: MAGNESIUM HYDROXIDE 30 ML LIQUID UDC PO PRN (15:00)
--- NOTE | 2019-07-01 15:50 | NUR ---
pt transfered to floor. pt remained calm the whole er stay. daughter at bedside most of the time. pt breathing normally on ra. pt deneid cp.
[2019-07-01 16:14] VITALS: BP 154/64
[2019-07-01] MEDS ORDERED: hydrALAZINE HCL 25 MG TABLET PO SCH (17:00)
--- NOTE | 2019-07-01 19:30 | NUR ---
Received patient awake and alert in bed, A/Ox3 with daughter at bedside. No acute distress noted. No complaints of pain or SOB. Patient noted with extended abdomen, tender, no pain during palpation. Heplock on the left forearm is intact and patent. Safety measures initiated, bed is low and locked, call light within reach. Will continue to monitor.
[2019-07-01 19:44] VITALS: BP 152/64
[2019-07-01] MEDS: hydrALAZINE HCL 50 MG TABLET PO SCH (20:14)
[2019-07-01] MEDS: FUROSEMIDE 40 MG TABLET PO SCH (20:14)
[2019-07-01] MEDS: ATORVASTATIN 10 MG TABLET PO SCH (20:15)
[2019-07-01] MEDS: ACETAMINOPHEN 325 MG TABLET PO PRN (23:45)
[2019-07-02] VITALS: BP 155/63
--- NOTE | 2019-07-02 02:46 | NUR ---
Patient unable to sleep, but does not want any medication. Seems anxious, wants to go home, daughter mentioned that this happens when she's in the hospital. Reassured patient when needed. Patient transferred to chair, walked with steady gait with assistance. Call light with patient and instructed to call when wanting to go back to bed. Will continue to monitor.
--- NOTE | 2019-07-02 03:34 | NUR ---
Assisted patient back to bed, patient is now sleeping. Will continue to monitor.
[2019-07-02 03:52] LABS: *BILIRUBIN,URIN NEGATIVE (NEGATIVE); *BLOOD, URINE NEGATIVE (NEGATIVE); *CLARITY,URINE CLEAR (CLEAR); *COLOR,URINE YELLOW (YELLOW); *KETONES,URINE NEGATIVE (NEGATIVE); *UROBILINOGEN,URINE 0.2 E.U./dl (NORMAL); LEUKOCYTE ESTERASE ,URINE 1+ (NEGATIVE); NITRITE, URINE NEGATIVE (NEGATIVE); PH,URINE 5.5 (5.0-8.0); UGLUCOSE NEGATIVE (NEGATIVE)
[2019-07-02 04:00] VITALS: BP 157/65
[2019-07-02 04:03] LABS: RBC,URINE 0-3 /HPF (0-3)
[2019-07-02 04:04] LABS: BACTERIA,URINE FEW /HPF (NONE SEEN); SQUAMOUS EPITHELIAL CELL,UR FEW /HPF (NONE SEEN)
[2019-07-02 06:06] LABS: EOSINOPHILS # (AUTO) 0.1 K/uL (0.0-0.7); EOSINOPHILS % (AUTO) 2.5 % (0.0-7.0); HEMATOCRIT 34.5 % (31.2-41.9); HEMOGLOBIN 11.1 g/dL (10.9-14.3); LYMPHOCYTES # (AUTO) 0.6 K/uL (20.0-40.0); LYMPHOCYTES % (AUTO) 15.4 % (20.5-51.5); MEAN CORPUSCULAR HEMOGLOBIN 29.1 uug (24.7-32.8); MEAN CORPUSCULAR HGB CONC 32 g/dL (32.3-35.6); MEAN CORPUSCULAR VOLUME 90.7 fL (75.5-95.3); MONOCYTES # (AUTO) 0.3 K/uL (2.0-10.0); MONOCYTES % (AUTO) 7.8 % (0.0-11.0); NEUTROPHILS % (AUTO) 73.3 % (38.5-71.5); PLATELET COUNT (AUTO) 196 K/uL (179-408); WHITE BLOOD COUNT (AUTO) 4.1 K/uL (3.8-11.8)
[2019-07-02 06:14] LABS: THYROID STIMULATING HORMONE 8.934 mIU/mL (0.358-3.740)
[2019-07-02 06:16] LABS: CARBON DIOXIDE 26 mmol/L (21-32); CHLORIDE 107 mmol/L (98-107); CHOLESTEROL 163 mg/dL (<200); CREATININE 2.5 mg/dL (0.6-1.3); GLUCOSE 74 mg/dL (74-106); HDL CHOLESTEROL 57 mg/dL (40-60); MAGNESIUM 2.5 mg/dL (1.8-2.4); PHOSPHOROUS 4.1 mg/dL (2.5-4.9); POTASSIUM 3.1 mmol/L (3.5-5.1); TRIGLYCERIDES 44 MG/DL (30-150); UREA NITROGEN, BLOOD 64 mg/dL (7-18)
[2019-07-02] MEDS: PANTOPRAZOLE SODIUM 40 MG TABLET.DR PO SCH (06:35)
[2019-07-02] MEDS: LEVOTHYROXINE SODIUM 150 MCG TABLET PO SCH (06:35)
[2019-07-02] MEDS ORDERED: AMIODARONE HCL 200 MG TABLET PO SCH (09:00)
--- NOTE | 2019-07-02 09:00 | NUR ---
NPO FOR PROCEDURE
[2019-07-02] MEDS: FUROSEMIDE 40 MG TABLET PO SCH ×2 (11:00→17:37)
[2019-07-02] MEDS: hydrALAZINE HCL 50 MG TABLET PO SCH ×2 (11:00→17:37)
[2019-07-02] MEDS: POTASSIUM CHLORIDE 10 MEQ TAB.PRT.SR PO SCH (11:00)
[2019-07-02] MEDS: ASPIRIN 81 MG TAB.CHEW PO SCH (11:00)
[2019-07-02] MEDS: CHOLECALCIFEROL 1,000 UNIT TABLET PO SCH (11:00)
--- NOTE | 2019-07-02 11:00 | NUR ---
AM MEDS GIVEN ---- PROCEDURE RESCHEDULED FOR TOMORROW
[2019-07-02 11:18] VITALS: BP 163/64
[2019-07-02 15:17] VITALS: BP 182/72
[2019-07-02] MEDS ORDERED: NIFEdipine XL 60 MG TABSR PO SCH (17:00)
[2019-07-02 20:34] VITALS: BP 204/68
[2019-07-02 20:48] VITALS: BP 218/80
--- NOTE | 2019-07-02 20:49 | NUR ---
BP is 218/80, hr63, Meli Camara notified, awaiting new orders
[2019-07-02] MEDS ORDERED: hydrALAZINE HCL 20 MG/1 ML VIAL IV PRN (21:00)
[2019-07-02] MEDS ORDERED: CLONIDINE HCL 0.1 MG TABLET PO PRN (21:00)
[2019-07-02] MEDS: ATORVASTATIN 10 MG TABLET PO SCH (21:24)
[2019-07-03] MEDS: ACETAMINOPHEN 325 MG TABLET PO PRN (00:20)
[2019-07-03 00:46] VITALS: BP 199/80
[2019-07-03 04:42] VITALS: BP 102/51
[2019-07-03] MEDS: PANTOPRAZOLE SODIUM 40 MG TABLET.DR PO SCH (06:48)
[2019-07-03] MEDS: LEVOTHYROXINE SODIUM 150 MCG TABLET PO SCH (06:48)
[2019-07-03] MEDS: CHOLECALCIFEROL 1,000 UNIT TABLET PO SCH (08:40)
[2019-07-03] MEDS: FUROSEMIDE 40 MG TABLET PO SCH (08:40)
[2019-07-03] MEDS: ASPIRIN 81 MG TAB.CHEW PO SCH (08:40)
[2019-07-03] MEDS: POTASSIUM CHLORIDE 10 MEQ TAB.PRT.SR PO SCH (08:40)
[2019-07-03] MEDS: hydrALAZINE HCL 50 MG TABLET PO SCH (08:42)
[2019-07-03] MEDS ORDERED: NIFEdipine XL 60 MG TABSR PO SCH (09:00)
--- NOTE | 2019-07-03 09:00 | NUR ---
AWAKE ALERT AND ORIENTED DENIES PAIN OR DISCOMFORTS AT THIS TIME ABD IS DISTENDED PATIENT HAS ASCITIS AWAITING FOR PARACENTHESIS ORDERED.NO SOB AT THIS TIME.
--- NOTE | 2019-07-03 10:00 | NUR ---
PATIENT SEEN BY DR MCKINNON WITH NO NEW ORDERS AT THIS TIME.BLOOD PRESSURE IS 129/52
--- NOTE | 2019-07-03 11:30 | NUR ---
PARACENTHESIS COMPLETED ORDERED THE DR REMOVED 2000 ML STRAW COLORED FLUID AND SENT TO THE LAB.PATIENT TOLERATED PROCEDURE WELL.
[2019-07-03 11:46] VITALS: BP 124/55
[2019-07-03] MEDS ORDERED: HYDR50TA68 PO (12:31)
[2019-07-03] MEDS ORDERED: ALBUMIN HUMAN 25% 100 ML IV ONE (14:00)
--- NOTE | 2019-07-03 14:14 | NUR ---
NEW ORDER NOTED TO DISCHARGE PATIENT HOME TODAY AND NOTED ALBUMEN IS IN PROGRESS ORDERED PATIENTS DAUGHTER AWARE AND STATED WILL BE ABLE TO PICK HER UP LATER THIS AFTERNOON
--- NOTE | 2019-07-03 16:00 | NUR ---
PATIENT DISCHARGED PICKED UP BY HER DAUGHTER SUGEY IN SATISFACTORY CONDITION WITH DISCHARGE INSTRUCTIONS AND PRESCRIPTIONS AND DAUGHTER INSTRUCTED ON MEDICATIONS CHANGES AND TO CALL HER PRIMARY DOCTOR FOR A FOLLOW UP APPOINTMENT WITHIN THE NEXT ONE WEEK AND SHE EXPRESSED UNDERSTANDING
== END 2019-07-03 16:00 | disposition home or self-care (01) | DRG 432 ==
LOC: ER 13:00 → MEDSURG3 15:45 → TELE3 16:19
PROC: 0W9G3ZZ Drainage of Peritoneal Cavity, Percutaneous Approach (ICD-10-PCS; principal; 2019-07-03)
DX: K74.69 Other cirrhosis of liver (principal); I21.A1 Myocardial infarction type 2; R18.8 Other ascites; K76.6 Portal hypertension; I13.0 Hypertensive heart and chronic kidney disease with heart failure and stage 1 through stage 4 chronic kidney disease, or unspecified chronic kidney disease; N18.4 Chronic kidney disease, stage 4 (severe); I50.32 Chronic diastolic (congestive) heart failure; E44.0 Moderate protein-calorie malnutrition; B19.20 Unspecified viral hepatitis C without hepatic coma; I48.0 Paroxysmal atrial fibrillation; E03.9 Hypothyroidism, unspecified; E87.6 Hypokalemia; I25.10 Atherosclerotic heart disease of native coronary artery without angina pectoris; D17.9 Benign lipomatous neoplasm, unspecified; K40.90 Unilateral inguinal hernia, without obstruction or gangrene, not specified as recurrent; K57.90 Diverticulosis of intestine, part unspecified, without perforation or abscess without bleeding; M16.11 Unilateral primary osteoarthritis, right hip; K80.20 Calculus of gallbladder without cholecystitis without obstruction; Z79.890 Hormone replacement therapy; Z79.899 Other long term (current) drug therapy; Z87.891 Personal history of nicotine dependence; Z91.81 History of falling; J92.9 Pleural plaque without asbestos
CPT/HCPCS: 36415; 70030-TC; 71045; 71250; 83690; 83735; 84100; 84443; 85025; 85730; 87086; 93005; 93307; A4663; G0378; J0360; J7040; J7050; P9047

== ENCOUNTER 2019-07-09 13:47 | Emergency (ER) | payer BC ==
[~2019-07-09] VITALS: Ht 152.4 cm; Wt 41.3 kg
--- NOTE | 2019-07-09 14:40 | NUR ---
PT IS IN ROOM #1A. DR TEJEDA EVALUATED THE PT.
[2019-07-09 16:04] LABS: BASOPHILS % (AUTO) 0.7 % (0.0-2.0); EOSINOPHILS % (AUTO) 0.2 % (0.0-7.0); HEMATOCRIT 36.4 % (31.2-41.9); HEMOGLOBIN 11.6 g/dL (10.9-14.3); LYMPHOCYTES # (AUTO) 0.5 K/uL (20.0-40.0); LYMPHOCYTES % (AUTO) 9.2 % (20.5-51.5); MEAN CORPUSCULAR HEMOGLOBIN 29.3 uug (24.7-32.8); MEAN CORPUSCULAR HGB CONC 32 g/dL (32.3-35.6); MEAN CORPUSCULAR VOLUME 92.2 fL (75.5-95.3); MONOCYTES # (AUTO) 0.4 K/uL (2.0-10.0); MONOCYTES % (AUTO) 6.2 % (0.0-11.0); NEUTROPHILS # (AUTO) 4.9 K/uL (1.8-8.9); NEUTROPHILS % (AUTO) 83.7 % (38.5-71.5); PLATELET COUNT (AUTO) 196 K/uL (179-408); RED BLOOD CELL COUNT(AUTO) 3.95 MIL/uL (3.63-4.92); WHITE BLOOD COUNT (AUTO) 5.9 K/uL (3.8-11.8)
[2019-07-09 16:15] LABS: CARBON DIOXIDE 26 mmol/L (21-32); CHLORIDE 106 mmol/L (98-107); GLUCOSE 96 mg/dL (74-106); POTASSIUM 3.8 mmol/L (3.5-5.1); UREA NITROGEN, BLOOD 67 mg/dL (7-18)
[2019-07-09 16:20] LABS: ALANINE AMINOTRANSFERASE 9 U/L (14-59); ALKALINE PHOSPHATASE 54 U/L (50-136); ASPARTATE AMINOTRANSFERASE 18 U/L (15-37); BILIRUBIN,TOTAL 0.3 mg/dL (0.2-1.0); TOTAL PROTEIN, SERUM 6.3 g/dL (6.4-8.2)
--- NOTE | 2019-07-09 16:36 | NUR ---
pt was d/c'D to home. d/c instructions given to the pt and to her gilaer.
[2019-07-09 16:37] VITALS: BP 124/69
== END 2019-07-09 16:38 | disposition home or self-care (01) ==
LOC: ER 13:47
DX: R18.8 Other ascites (principal); N18.9 Chronic kidney disease, unspecified; I50.9 Heart failure, unspecified; Z88.0 Allergy status to penicillin; Z88.5 Allergy status to narcotic agent; Z88.8 Allergy status to other drugs, medicaments and biological substances; Z79.899 Other long term (current) drug therapy; Z79.82 Long term (current) use of aspirin
CPT/HCPCS: 36415; 76705; 85025; 85730; 93005; A4663

== ENCOUNTER 2019-07-10 10:47 | Emergency (ER) | payer BC ==
[~2019-07-10] VITALS: Ht 152.4 cm; Wt 41.3 kg
[~2019-07-10 10:47] MED LIST changes: -AMIO200T4 PO; +HYDR-4077 PO; -HYDR100T27 PO; +HYDR50TA68 PO; +LEVO150T8 PO
--- NOTE | 2019-07-10 11:53 | NUR ---
PT IS IN ROOM #2B. DR TEJEDA EVALUATED THE PT. US GUIDED PARACENTESIS WAS PERFORMED BY DR BUTLER. PT TOLEARTED TO PROCEDURE WITHOUT COMPLICATIONS.
--- NOTE | 2019-07-10 12:32 | NUR ---
PT WAS D/C'D TO HOME AFTER DR TEJEDA EVALUATION. D/C INSTRUCTIONSGIVEN TO THE PT BY DR TEJEDA.
[2019-07-10 12:33] VITALS: BP 146/91
== END 2019-07-10 12:34 | disposition home or self-care (01) ==
LOC: ER 10:47
DX: R18.8 Other ascites (principal); I50.9 Heart failure, unspecified; Z88.0 Allergy status to penicillin; Z88.5 Allergy status to narcotic agent; Z88.8 Allergy status to other drugs, medicaments and biological substances; Z79.82 Long term (current) use of aspirin; Z79.899 Other long term (current) drug therapy
CPT/HCPCS: A4663